=== PATIENT | male | born 1960 | race Caucasian/White ===

== ENCOUNTER 2017-04-11 16:30 | Emergency (ER) | payer OTHER ==
[~2017-04-11] VITALS: Ht 172.7 cm; Wt 75.0 kg
[~2017-04-11 16:30] MED LIST: ASPI325T28 PO; BACT800T5 PO; CLOTR1CR TOP; FISH100049 PO; FURO20TA2 PO; LACT10SO29 PO; NICO21PAT TD; SPIR25TA2 PO; TORS10TA3 PO; VITA10002 PO; VITMTA PO
[2017-04-11] MEDS ORDERED: PREG100CA (16:58)
[2017-04-11] MEDS ORDERED: FURO40TA2 (16:58)
[2017-04-11] MEDS ORDERED: DIAZ5TAB (16:58)
[2017-04-11 17:40] LABS: MEAN CORPUSCULAR HEMOGLOBIN 32.9 pg (27.0-33.0); MEAN CORPUSCULAR VOLUME 91.4 fl (80.0-96.0); RED CELL DISTRIBUTION WIDTH 13.4 % (11.5-14.5); WHITE BLOOD COUNT 9.4 K/mm3 (4.0-10.0)
[2017-04-11 17:54] LABS: METHADONE URINE NEGATIVE (NEGATIVE)
[2017-04-11 18:08] LABS: ALBUMIN 3.6 GM/DL (3.2-5.2); ALBUMIN/GLOBULIN RATIO 1.16 (1.00-1.93); ALKALINE PHOSPHATASE 81 U/L (45-117); ALT/SGPT 69 U/L (12-78); ANION GAP 11 MEQ/L (8-16); AST/SGOT 66 U/L (15-37); BILIRUBIN,DIRECT 0.1 MG/DL (0.0-0.2); BILIRUBIN,TOTAL 0.3 MG/DL (0.2-1.0); BLOOD UREA NITROGEN 10 MG/DL (7-18); CALCIUM LEVEL 8.5 MG/DL (8.5-10.1); CARBON DIOXIDE LEVEL 22 MEQ/L (21-32); CHLORIDE LEVEL 114 MEQ/L (98-107); CREATININE FOR GFR 1.01 MG/DL (0.70-1.30); GLOMERULAR FILTRATION RATE > 60.0 (>56); GLUCOSE, FASTING 90 MG/DL (70-105); POTASSIUM SERUM 4.2 MEQ/L (3.5-5.1); SODIUM LEVEL 147 MEQ/L (136-145); TOTAL PROTEIN 6.7 GM/DL (6.4-8.2)
[2017-04-12] MEDS ORDERED: NICOTINE 21MG/24HR 1 EA TRANSDERMAL TD ONE (02:00)
[2017-04-12] MEDS ORDERED: OXAZEPAM 15 MG CAP PO ONE (02:00)
[2017-04-12 08:03] VITALS: BP 141/75
--- NOTE | 2017-04-13 09:03 | ECGEPIP ---
Stationary ECG Study [facility] - ED Test Date: 2017-04-11 Pat Name: EDWARD MEJÍA Department: Room: - Gender: M Merchandise Pickup/Receiving Associate: pamela : 1960 Requested By: SHAISTA Fine Order Number: [id number] Reading MD: Mishel Perez Measurements Intervals [place] Rate: 58 P: -31 [place]: 147 QRS: -43 QRSD: 108 T: 55 QT: 421 QTc: 416 Interpretive Statements SINUS BRADYCARDIA MARKED LEFT AXIS DEVIATION DELAYED R PROGRESSION NO PRIOR FOR COMPARISON Electronically Signed On 04-13-2017 9:03:08 EDT by Mishel Perez
== END 2017-04-12 08:05 | disposition home or self-care (01) ==
LOC: EDBD 16:30 → M ED 16:30
DX: F10.129 Alcohol abuse with intoxication, unspecified (principal); R00.1 Bradycardia, unspecified; Z63.8 Other specified problems related to primary support group; K74.60 Unspecified cirrhosis of liver; R22.1 Localized swelling, mass and lump, neck; F17.200 Nicotine dependence, unspecified, uncomplicated; Z79.82 Long term (current) use of aspirin; Z79.899 Other long term (current) drug therapy; Z88.8 Allergy status to other drugs, medicaments and biological substances

== ENCOUNTER → 2017-04-11 16:39 | Emergency (ER) | payer OTHER ==
[~2017-04-11 16:39] MED LIST changes: +DIAZ5TAB; +FURO40TA2; +PREG100CA
== END | disposition still patient (30) ==
LOC: M ED 16:39
DX: F10.129 Alcohol abuse with intoxication, unspecified (principal)

== ENCOUNTER → 2021-03-05 | Outpatient (REF) | payer OTHER, MEDICAID ==
[~2021-03-05] MED LIST changes: +ASPI-527 PO; -ASPI325T28 PO; +CLOT1CRE27 TOP; -CLOTR1CR TOP; +CYAN100049 PO; -LACT10SO29 PO; +LACT20EL PO; +NICO21DI3 TD; -NICO21PAT TD; +SPIR-10 PO; -SPIR25TA2 PO; -VITA10002 PO
[2021-03-05 18:22] LABS: APPEARANCE, URINE HAZY (CLEAR); BACTERIA, URINE AUTO NEGATIVE (NEGATIVE); BILIRUBIN, URINE AUTO 1+ (NEGATIVE); BLOOD, URINE BLOOD NEGATIVE (NEGATIVE); CALCIUM OXALATE CRYSTALS SMALL; COLOR, URINE AMBER (YELLOW); GLUCOSE, URINE (UA) AUTO NEGATIVE (NEGATIVE); KETONE, URINE AUTO 1+ mg/dL (NEGATIVE); LEUKOCYTE ESTERASE, URINE AUTO NEGATIVE (NEGATIVE); MUCUS, URINE LARGE (NEGATIVE); NITRITE, URINE AUTO NEGATIVE (NEGATIVE); PROTEIN, URINE AUTO 2+ mg/dL (NEGATIVE); RBC, URINE AUTO 1 /HPF (0-3); SPECIFIC GRAVITY URINE AUTO 1.025 (1.002-1.035); SQUAMOUS EPITHELIAL CELL UR AU 0 /HPF (0-6); WBC, URINE AUTO 2 /HPF (0-3)
== END ==
LOC: M LAB REF 17:24
PROVIDERS: ATTEND Nurse Practitioner Women's Health
DX: R35.0 Frequency of micturition (principal)

== ENCOUNTER → 2021-05-20 | Outpatient (CLI) | payer OTHER ==
[~2021-05-20] MED LIST changes: +AMLO1TAB24 PO; +ARIP1TAB6 PO; +ASPI81TA26 PO; +CALC-263 PO; +DULO1CAP6 PO; +FERR325T81 PO; +FISH1000 PO; +FOLI0.4T5 PO; +GABA-282 PO; +HYDR-3363 PO; +MELA10CA2 PO; +PROP20TA72 PO; +RA N1TAB PO; +SIMV20TA22 PO; +SM P99TA PO; +SUPETAB44 PO; +TRAZ1TAB14 PO
== END ==
LOC: M LABSMTC 09:22
PROVIDERS: ATTEND Anesthesiology
DX: Z20.828 Contact with and (suspected) exposure to other viral communicable diseases (principal); Z11.52 Encounter for screening for COVID-19

== ENCOUNTER 2021-05-24 08:53 | Day surgery (SDC) | payer MEDICAID, OTHER ==
[~2021-05-24] VITALS: Ht 172.7 cm; Wt 89.5 kg
[~2021-05-24 08:53] MED LIST changes: +LIDOCAINE 2% 100MG/5ML SDV (FOR ANES.) As Ordered ONE; +NS 1,000 ML IV ONE; +propofoL 200 MG/20 ML VIAL As Ordered ONE
--- NOTE | 2021-05-24 10:49 | ROOR ---
Patient Name: Luc Garnica Procedure Date: 05/24/2021 10:03 AM Date of : 1960 Age: 61 Room: [facility] Gender: Male Note Status: Finalized Procedure: Colonoscopy Indications: High risk colon cancer surveillance: Personal history of colonic polyps Providers: Shantanu Landrum MD Referring MD: Raffi Plasencia Requesting Provider: Medicines: Monitored Anesthesia Care Complications: No immediate complications. Procedure: Pre-Anesthesia Assessment: - Prior to the procedure, a History and Physical was performed, and patient medications and allergies were reviewed. The patient is competent. The risks and benefits of the procedure and the sedation options and risks were discussed with the patient. All questions were answered and informed consent was obtained. Patient identification and proposed procedure were verified by the physician, the nurse and the anesthesiologist in the procedure room. Mental Status Examination: alert and oriented. Airway Examination: normal oropharyngeal airway and neck mobility. Respiratory Examination: clear to auscultation. CV Examination: normal. Prophylactic Antibiotics: The patient does not require prophylactic antibiotics. Prior Anticoagulants: The patient has taken no previous anticoagulant or antiplatelet agents. ASA Grade Assessment: II - A patient with mild systemic disease. After reviewing the risks and benefits, the patient was deemed in satisfactory condition to undergo the procedure. The anesthesia plan was to use monitored anesthesia care (MAC). Immediately prior to administration of medications, the patient was re-assessed for adequacy to receive sedatives. The heart rate, respiratory rate, oxygen saturations, blood pressure, adequacy of pulmonary ventilation, and response to care were monitored throughout the procedure. The physical status of the patient was re-assessed after the procedure. The Colonoscope was introduced through the anus and advanced to the cecum, identified by appendiceal orifice and ileocecal valve. The colonoscopy was performed without difficulty. The patient tolerated the procedure well. The quality of the bowel preparation was good except the sigmoid colon was fair and the transverse colon was fair. The ileocecal valve, appendiceal orifice, and rectum were photographed. Scope insertion time was 2 minutes. Scope withdrawal time was 8 minutes. The total duration of the procedure was 11 minutes. Findings: The perianal and digital rectal examinations were normal. Six sessile polyps were found in the rectum, transverse colon and ascending colon. The polyps were 8 to 15 mm in size. These polyps were removed with a hot snare. Resection and retrieval were complete. Verification of patient identification for the specimen was done by the physician and nurse using the patient's name, date and medical record number. Estimated blood loss was minimal. A large amount of semi-solid stool was found in the recto-sigmoid colon, in the sigmoid colon and in the transverse colon, interfering with visualization. Lavage of the area was performed using a large amount of sterile water, resulting in clearance with fair visualization. Non-bleeding external and internal hemorrhoids were found during retroflexion. The hemorrhoids were medium-sized. Multiple small-mouthed diverticula were found in the sigmoid colon. There was no evidence of diverticular bleeding. Impression: - Six 8 to 15 mm polyps in the rectum, in the transverse colon and in the ascending colon, removed with a hot snare. Resected and retrieved. - Stool in the recto-sigmoid colon, in the sigmoid colon and in the transverse colon. - Non-bleeding external and internal hemorrhoids. - Mild diverticulosis in the sigmoid colon. There was no evidence of diverticular bleeding. Recommendation: - Patient has a contact number available for emergencies. The signs and symptoms of potential delayed complications were discussed with the patient. Return to normal activities tomorrow. Written discharge instructions were provided to the patient. - High fiber diet. - Continue present medications. - Await pathology results. - Repeat colonoscopy in 1 year because the bowel preparation was suboptimal and for surveillance of multiple polyps. - Telephone GI clinic for pathology results in 2 weeks. - Return to GI clinic in 1 year. - Return to primary care physician. Procedure Code(s): --- Professional --- 10217, Colonoscopy, flexible; with removal of tumor(s), polyp(s), or other lesion(s) by snare technique Diagnosis Code(s): --- Professional --- Z86.010, Personal history of colonic polyps K62.1, Rectal polyp K63.5, Polyp of colon K64.8, Other hemorrhoids K57.30, Diverticulosis of large intestine without perforation or abscess without bleeding CPT copyright 2019 [employer]. All rights reserved. The codes documented in this report are preliminary and upon materials manager review may be revised to meet current compliance requirements. Shantanu Landrum MD Shantanu Landrum MD 05/24/2021 10:49:13 AM Electronically signed by Shantanu Landrum MD Number of Addenda: 0 Note Initiated On: 05/24/2021 10:03 AM Estimated Blood Loss: Estimated blood loss was minimal.
[2021-05-24 11:00] VITALS: BP 144/91
== END 2021-05-24 14:45 | disposition home or self-care (01) ==
LOC: M OPP 08:53
PROVIDERS: ATTEND Internal Medicine Gastroenterology
DX: Z12.11 Encounter for screening for malignant neoplasm of colon (principal); Z86.010 Personal history of colon polyps; D12.6 Benign neoplasm of colon, unspecified; D12.8 Benign neoplasm of rectum; K57.30 Diverticulosis of large intestine without perforation or abscess without bleeding; K64.8 Other hemorrhoids; E03.9 Hypothyroidism, unspecified; K74.60 Unspecified cirrhosis of liver; J44.9 Chronic obstructive pulmonary disease, unspecified; Z79.82 Long term (current) use of aspirin; Z79.899 Other long term (current) drug therapy; Z88.1 Allergy status to other antibiotic agents; F17.210 Nicotine dependence, cigarettes, uncomplicated

== ENCOUNTER 2021-10-19 00:26 | Inpatient (IN) | payer MEDICARE, OTHER ==
[~2021-10-19] VITALS: Ht 172.7 cm; Wt 82.1 kg
[~2021-10-19 00:26] MED LIST changes: +GNP99TAB3 PO; -LIDOCAINE 2% 100MG/5ML SDV (FOR ANES.) As Ordered ONE; -NS 1,000 ML IV ONE; -SM P99TA PO; -propofoL 200 MG/20 ML VIAL As Ordered ONE
[2021-10-19] MEDS ORDERED: LORazepam 2 MG/ML VIAL IV STA ×2 (00:57→04:37)
[2021-10-19 01:26] LABS: BASO # 0.1 10^3/uL (0.0-0.2); BASO % 0.7 % (0.0-1.0); EOS % 0.1 % (0.0-3.0); HEMATOCRIT 41.6 % (42.0-52.0); HEMOGLOBIN 14.8 g/dl (13.5-17.5); LYMPH # 1.9 10^3/uL (1.5-5.0); LYMPH % 19.6 % (24.0-44.0); MEAN CORPUSCULAR HEMOGLOBIN 36.1 pg (27.0-33.0); MEAN CORPUSCULAR HGB CONC 35.6 g/dl (32.0-36.5); MEAN CORPUSCULAR VOLUME 101.5 fl (80.0-96.0); MONO # 0.9 10^3/uL (0.0-0.8); MONO % 8.7 % (2.0-8.0); NEUTROPHILS # 6.9 10^3/uL (1.5-8.5); NEUTROPHILS % 70.7 % (36.0-66.0); PLATELET COUNT, AUTOMATED 126 10^3/uL (150-450); WHITE BLOOD COUNT 9.7 10^3/uL (4.0-10.0)
[2021-10-19 02:21] LABS: ACETAMINOPHEN LEVEL < 2.0 UG/ML (10.0-30.0); ALBUMIN 2.5 GM/DL (3.2-5.2); ALT/SGPT 128 U/L (12-78); BILIRUBIN,TOTAL 2.1 MG/DL (0.2-1.0); BLOOD UREA NITROGEN 7 MG/DL (7-18); CALCIUM LEVEL 8.3 MG/DL (8.8-10.2); CARBON DIOXIDE LEVEL 27 MEQ/L (21-32); CHLORIDE LEVEL 107 MEQ/L (98-107); CREATININE FOR GFR 0.92 MG/DL (0.70-1.30); GLOMERULAR FILTRATION RATE > 60.0 (>49); GLUCOSE, FASTING 127 MG/DL (70-100); POTASSIUM SERUM 2.8 MEQ/L (3.5-5.1); SALICYLATE LEVEL < 1.7 MG/DL (5.0-30.0); SODIUM LEVEL 146 MEQ/L (136-145); TOTAL PROTEIN 5.7 GM/DL (6.4-8.2)
[2021-10-19] MEDS ORDERED: MULTIVITAMIN -ADULT INJECTION 10 ML, THIAMINE INJection 100 MG, FOLIC ACID 1 MG in NS 1... IV ONE (02:30)
[2021-10-19] MEDS ORDERED: NS 1,000 ML IV ONE (02:30)
[2021-10-19] MEDS: POTASSIUM CHLORIDE 10% LIQ 20 MEQ/15 ML UDC PO SCH ×2 (02:45→04:46)
[2021-10-19] MEDS ORDERED: OXAZEPAM 15MG CAP PO ONE (03:30)
[2021-10-19 05:56] LABS: ALBUMIN 2.4 GM/DL (3.2-5.2); ALT/SGPT 128 U/L (12-78); BILIRUBIN,TOTAL 2.3 MG/DL (0.2-1.0); BLOOD UREA NITROGEN 8 MG/DL (7-18); CALCIUM LEVEL 7.8 MG/DL (8.8-10.2); CARBON DIOXIDE LEVEL 27 MEQ/L (21-32); CHLORIDE LEVEL 111 MEQ/L (98-107); CREATININE FOR GFR 0.92 MG/DL (0.70-1.30); GLOMERULAR FILTRATION RATE > 60.0 (>49); GLUCOSE, FASTING 153 MG/DL (70-100); POTASSIUM SERUM 3.5 MEQ/L (3.5-5.1); SODIUM LEVEL 148 MEQ/L (136-145); TOTAL PROTEIN 5.5 GM/DL (6.4-8.2)
[2021-10-19 07:30] LABS: RSV AMPLIFICATION NEGATIVE (NEGATIVE)
[2021-10-19] MEDS ORDERED: LORazepam 2 MG TAB PO PRN (08:10)
[2021-10-19 10:20] VITALS: BP 142/95
[2021-10-19] MEDS: THIAMINE 100 MG TAB PO SCH ×2 (11:16→21:49)
[2021-10-19 12:00] VITALS: BP 136/79
[2021-10-19 12:38] LABS: INR 1.18; PROTHROMBIN TIME 15.4 SECONDS (12.7-14.5)
[2021-10-19 12:39] LABS: PARTIAL THROMBOPLASTIN TIME 30.3 SECONDS (25.9-37.0)
[2021-10-19 12:52] LABS: MAGNESIUM LEVEL 1.4 MG/DL (1.8-2.4)
[2021-10-19] MEDS ORDERED: LORazepam 2 MG/ML VIAL IV PRN ×2 (13:05→15:40)
[2021-10-19 13:07] LABS: BLOOD UREA NITROGEN 8 MG/DL (7-18); CALCIUM LEVEL 7.4 MG/DL (8.8-10.2); CARBON DIOXIDE LEVEL 25 MEQ/L (21-32); CHLORIDE LEVEL 110 MEQ/L (98-107); CREATININE FOR GFR 0.92 MG/DL (0.70-1.30); GLOMERULAR FILTRATION RATE > 60.0 (>49); GLUCOSE, FASTING 191 MG/DL (70-100); POTASSIUM SERUM 2.7 MEQ/L (3.5-5.1); SODIUM LEVEL 144 MEQ/L (136-145)
[2021-10-19 13:31] LABS: HEPATITIS B SURFACE ANTIGEN NEGATIVE (NEGATIVE)
[2021-10-19] MEDS ORDERED: POTASSIUM CHLORIDE 10MEQ SR TABLET PO ONE ×2 (13:45→23:00)
[2021-10-19 14:00] LABS: HEPATITIS B CORE ANTIBODY IGM NEGATIVE (NEGATIVE)
[2021-10-19] MEDS: OXAZEPAM 15MG CAP PO SCH ×3 (14:31→23:32)
[2021-10-19] MEDS: MAG SULF 1GM/100ML (MAG RUN) 1 GM in IV 1 EA IV SCH ×4 (14:32→19:51)
[2021-10-19] MEDS: NICOTINE 21MG/24HR 1 EA TRANSDERMAL TD SCH (15:57)
[2021-10-19 16:00] VITALS: BP 144/86
[2021-10-19] MEDS: LORazepam 2 MG/ML VIAL IV PRN ×4 (18:13→23:31)
[2021-10-19 18:23] LABS: BLOOD UREA NITROGEN 9 MG/DL (7-18); CALCIUM LEVEL 7.7 MG/DL (8.8-10.2); CARBON DIOXIDE LEVEL 24 MEQ/L (21-32); CHLORIDE LEVEL 109 MEQ/L (98-107); CREATININE FOR GFR 0.85 MG/DL (0.70-1.30); GLOMERULAR FILTRATION RATE > 60.0 (>49); GLUCOSE, FASTING 167 MG/DL (70-100); POTASSIUM SERUM 3.2 MEQ/L (3.5-5.1); SODIUM LEVEL 142 MEQ/L (136-145)
[2021-10-19 20:02] VITALS: BP 133/83
[2021-10-19] MEDS ORDERED: THIAMINE 100 MG TAB PO SCH (21:00)
[2021-10-20] VITALS (8 sets, daily range): BP systolic 130–170; BP diastolic 62–119; O2SAT 96–98
[2021-10-20] MEDS: LORazepam 2 MG/ML VIAL IV PRN ×7 (02:18→21:06)
[2021-10-20] MEDS: OXAZEPAM 15MG CAP PO SCH ×3 (06:15→17:09)
[2021-10-20 06:20] LABS: HEMATOCRIT 35.2 % (42.0-52.0); MEAN CORPUSCULAR HEMOGLOBIN 35.8 pg (27.0-33.0); MEAN CORPUSCULAR HGB CONC 34.9 g/dl (32.0-36.5); MEAN CORPUSCULAR VOLUME 102.3 fl (80.0-96.0); RED BLOOD COUNT 3.44 10^6/uL (4.30-6.10); WHITE BLOOD COUNT 7.1 10^3/uL (4.0-10.0)
[2021-10-20 06:50] LABS: ALBUMIN 2.2 GM/DL (3.2-5.2); ALT/SGPT 106 U/L (12-78); BILIRUBIN,DIRECT 2.6 MG/DL (0.0-0.2); BILIRUBIN,TOTAL 3.9 MG/DL (0.2-1.0); TOTAL PROTEIN 4.9 GM/DL (6.4-8.2)
[2021-10-20 06:52] LABS: HEMOGLOBIN 12.3 g/dl (13.5-17.5); PLATELET COUNT, AUTOMATED 68 10^3/uL (150-450)
[2021-10-20] MEDS: MULTIVITAMINS/MINERALS THERAP 1 TAB PO SCH (07:37)
[2021-10-20] MEDS: THIAMINE 100 MG TAB PO SCH ×2 (07:37→21:06)
[2021-10-20] MEDS: NICOTINE 21MG/24HR 1 EA TRANSDERMAL TD SCH (07:37)
[2021-10-20] MEDS: FOLIC ACID 1 MG TAB PO SCH (07:37)
[2021-10-20 07:46] LABS: BLOOD UREA NITROGEN 10 MG/DL (7-18); CALCIUM LEVEL 7.4 MG/DL (8.8-10.2); CARBON DIOXIDE LEVEL 25 MEQ/L (21-32); CHLORIDE LEVEL 109 MEQ/L (98-107); CREATININE FOR GFR 0.81 MG/DL (0.70-1.30); GLOMERULAR FILTRATION RATE > 60.0 (>49); GLUCOSE, FASTING 101 MG/DL (70-100); MAGNESIUM LEVEL 2.1 MG/DL (1.8-2.4); POTASSIUM SERUM 3.1 MEQ/L (3.5-5.1); SODIUM LEVEL 141 MEQ/L (136-145)
[2021-10-20] MEDS ORDERED: POTASSIUM CHLORIDE 10MEQ SR TABLET PO ONE (15:40)
[2021-10-21] VITALS (7 sets, daily range): BP systolic 122–146; BP diastolic 66–78; O2SAT 95–97
[2021-10-21] MEDS: OXAZEPAM 15MG CAP PO SCH ×4 (00:16→18:31)
[2021-10-21] MEDS: LORazepam 2 MG/ML VIAL IV PRN ×2 (04:52→20:41)
[2021-10-21 06:07] LABS: HEMATOCRIT 33.8 % (42.0-52.0); MEAN CORPUSCULAR HEMOGLOBIN 36.4 pg (27.0-33.0); MEAN CORPUSCULAR HGB CONC 35.5 g/dl (32.0-36.5); MEAN CORPUSCULAR VOLUME 102.4 fl (80.0-96.0); WHITE BLOOD COUNT 5.9 10^3/uL (4.0-10.0)
[2021-10-21 06:09] LABS: PLATELET COUNT, AUTOMATED 62 10^3/uL (150-450)
[2021-10-21 06:33] LABS: ALBUMIN 2.1 GM/DL (3.2-5.2); ALT/SGPT 137 U/L (12-78); BILIRUBIN,TOTAL 4.2 MG/DL (0.2-1.0); BLOOD UREA NITROGEN 12 MG/DL (7-18); CALCIUM LEVEL 7.8 MG/DL (8.8-10.2); CARBON DIOXIDE LEVEL 28 MEQ/L (21-32); CHLORIDE LEVEL 110 MEQ/L (98-107); CREATININE FOR GFR 0.54 MG/DL (0.70-1.30); GLOMERULAR FILTRATION RATE > 60.0 (>49); GLUCOSE, FASTING 89 MG/DL (70-100); POTASSIUM SERUM 3.1 MEQ/L (3.5-5.1); SODIUM LEVEL 143 MEQ/L (136-145); TOTAL PROTEIN 4.8 GM/DL (6.4-8.2)
[2021-10-21] MEDS ORDERED: POTASSIUM CHLORIDE 10MEQ SR TABLET PO ONE (08:00)
[2021-10-21] MEDS: NICOTINE 21MG/24HR 1 EA TRANSDERMAL TD SCH (08:46)
[2021-10-21] MEDS: THIAMINE 100 MG TAB PO SCH ×2 (08:47→20:42)
[2021-10-21] MEDS: FOLIC ACID 1 MG TAB PO SCH (08:47)
[2021-10-21] MEDS: MULTIVITAMINS/MINERALS THERAP 1 TAB PO SCH (08:47)
[2021-10-21] MEDS: NS 1,000 ML IV SCH ×2 (08:49→18:30)
[2021-10-21] MEDS ORDERED: MED NOTE (12:39)
[2021-10-21] MEDS ORDERED: HOME MED LIST COMPLETE! XX SCH (12:40)
[2021-10-21] MEDS ORDERED: PROPRANOLOL 20 MG TAB PO PRN (16:25)
[2021-10-21] MEDS: DOXYCYCLINE HYCLATE 100 MG in D5W MINI-BAG PLUS 100 ML IV SCH (18:31)
[2021-10-21 18:47] LABS: INR 1.3; PROTHROMBIN TIME 16.6 SECONDS (12.7-14.5)
[2021-10-21] MEDS ORDERED: POLYVINYL ALCOHOL OPHTH SOLN 15 ML(LIQUITEARS) OD PRN (20:55)
[2021-10-22] VITALS: BP 157/92
[2021-10-22] MEDS: OXAZEPAM 15MG CAP PO SCH ×5 (01:20→17:34)
[2021-10-22 04:00] VITALS: BP 138/83
[2021-10-22] MEDS: LORazepam 2 MG/ML VIAL IV PRN (05:06)
[2021-10-22] MEDS: DOXYCYCLINE HYCLATE 100 MG in D5W MINI-BAG PLUS 100 ML IV SCH ×2 (05:49→17:33)
[2021-10-22] MEDS: NS 1,000 ML IV SCH ×2 (05:49→14:42)
[2021-10-22 07:17] LABS: HEMATOCRIT 36.3 % (42.0-52.0); HEMOGLOBIN 12.5 g/dl (13.5-17.5); MEAN CORPUSCULAR HEMOGLOBIN 36.1 pg (27.0-33.0); MEAN CORPUSCULAR HGB CONC 34.4 g/dl (32.0-36.5); MEAN CORPUSCULAR VOLUME 104.9 fl (80.0-96.0); RED BLOOD COUNT 3.46 10^6/uL (4.30-6.10); WHITE BLOOD COUNT 4.9 10^3/uL (4.0-10.0)
[2021-10-22 07:21] LABS: PLATELET COUNT, AUTOMATED 65 10^3/uL (150-450)
[2021-10-22 07:24] LABS: INR 1.25; PROTHROMBIN TIME 16.1 SECONDS (12.7-14.5)
[2021-10-22 07:37] LABS: ALT/SGPT 145 U/L (12-78); BILIRUBIN,TOTAL 3.9 MG/DL (0.2-1.0); BLOOD UREA NITROGEN 7 MG/DL (7-18); CALCIUM LEVEL 7.6 MG/DL (8.8-10.2); CARBON DIOXIDE LEVEL 26 MEQ/L (21-32); CHLORIDE LEVEL 110 MEQ/L (98-107); CREATININE FOR GFR 0.46 MG/DL (0.70-1.30); GLOMERULAR FILTRATION RATE > 60.0 (>49); GLUCOSE, FASTING 84 MG/DL (70-100); POTASSIUM SERUM 2.9 MEQ/L (3.5-5.1); SODIUM LEVEL 141 MEQ/L (136-145); TOTAL PROTEIN 5.1 GM/DL (6.4-8.2)
[2021-10-22] MEDS ORDERED: POTASSIUM CHLORIDE 10MEQ SR TABLET PO ONE (07:45)
[2021-10-22 08:00] VITALS: BP 133/98
[2021-10-22] MEDS: NICOTINE 21MG/24HR 1 EA TRANSDERMAL TD SCH (08:12)
[2021-10-22] MEDS: DULoxetine 30MG CAPSULE (CYMBALTA) PO SCH (08:13)
[2021-10-22] MEDS: FOLIC ACID 1 MG TAB PO SCH (08:15)
[2021-10-22] MEDS: MULTIVITAMINS/MINERALS THERAP 1 TAB PO SCH (08:15)
[2021-10-22 12:00] VITALS: BP 129/77
[2021-10-22 16:00] VITALS: BP 117/74
[2021-10-22 19:48] VITALS: BP 173/93
[2021-10-22] MEDS: OFLOXACIN 0.3 % (OCUFLOX) OPTH SOL 5ML OU SCH (20:58)
[2021-10-23] VITALS (7 sets, daily range): BP systolic 123–164; BP diastolic 81–92
[2021-10-23] MEDS: NS 1,000 ML IV SCH ×2 (01:28→11:30)
[2021-10-23] MEDS: OXAZEPAM 15MG CAP PO SCH ×5 (01:32→23:16)
[2021-10-23] MEDS: DOXYCYCLINE HYCLATE 100 MG in D5W MINI-BAG PLUS 100 ML IV SCH (05:10)
[2021-10-23 07:01] LABS: HEMATOCRIT 34.5 % (42.0-52.0); HEMOGLOBIN 12.1 g/dl (13.5-17.5); MEAN CORPUSCULAR HEMOGLOBIN 36.2 pg (27.0-33.0); MEAN CORPUSCULAR HGB CONC 35.1 g/dl (32.0-36.5); MEAN CORPUSCULAR VOLUME 103.3 fl (80.0-96.0); RED BLOOD COUNT 3.34 10^6/uL (4.30-6.10); WHITE BLOOD COUNT 5.3 10^3/uL (4.0-10.0)
[2021-10-23 07:02] LABS: PLATELET COUNT, AUTOMATED 82 10^3/uL (150-450)
[2021-10-23] MEDS ORDERED: oxyCODONE 5MG TAB PO PRN (07:15)
[2021-10-23 07:20] LABS: ALBUMIN 1.9 GM/DL (3.2-5.2); ALT/SGPT 132 U/L (12-78); BILIRUBIN,TOTAL 2.9 MG/DL (0.2-1.0); BLOOD UREA NITROGEN 8 MG/DL (7-18); CALCIUM LEVEL 7.4 MG/DL (8.8-10.2); CARBON DIOXIDE LEVEL 24 MEQ/L (21-32); CHLORIDE LEVEL 112 MEQ/L (98-107); CREATININE FOR GFR 0.47 MG/DL (0.70-1.30); GLOMERULAR FILTRATION RATE > 60.0 (>49); GLUCOSE, FASTING 91 MG/DL (70-100); POTASSIUM SERUM 2.8 MEQ/L (3.5-5.1); SODIUM LEVEL 142 MEQ/L (136-145); TOTAL PROTEIN 5.1 GM/DL (6.4-8.2)
[2021-10-23] MEDS ORDERED: POTASSIUM CHLORIDE 10MEQ SR TABLET PO ONE ×2 (07:30→10:30)
[2021-10-23] MEDS: DULoxetine 30MG CAPSULE (CYMBALTA) PO SCH (08:00)
[2021-10-23] MEDS: FOLIC ACID 1 MG TAB PO SCH (08:00)
[2021-10-23] MEDS: MULTIVITAMINS/MINERALS THERAP 1 TAB PO SCH (08:00)
[2021-10-23] MEDS: NICOTINE 21MG/24HR 1 EA TRANSDERMAL TD SCH (08:01)
[2021-10-23] MEDS: OFLOXACIN 0.3 % (OCUFLOX) OPTH SOL 5ML OU SCH ×4 (08:02→20:48)
[2021-10-23 17:25] LABS: BLOOD UREA NITROGEN 8 MG/DL (7-18); CALCIUM LEVEL 7.2 MG/DL (8.8-10.2); CARBON DIOXIDE LEVEL 21 MEQ/L (21-32); CHLORIDE LEVEL 116 MEQ/L (98-107); CREATININE FOR GFR 0.49 MG/DL (0.70-1.30); GLOMERULAR FILTRATION RATE > 60.0 (>49); GLUCOSE, FASTING 110 MG/DL (70-100); POTASSIUM SERUM 3.4 MEQ/L (3.5-5.1); SODIUM LEVEL 144 MEQ/L (136-145)
[2021-10-23] MEDS: DOXYCYCLINE HYCLATE 100MG TABLET PO SCH (20:48)
[2021-10-24 04:00] VITALS: BP 134/94
[2021-10-24] MEDS: OXAZEPAM 15MG CAP PO SCH ×2 (05:17→17:22)
[2021-10-24 06:07] LABS: HEMATOCRIT 35.4 % (42.0-52.0); HEMOGLOBIN 12.2 g/dl (13.5-17.5); MEAN CORPUSCULAR HEMOGLOBIN 36.1 pg (27.0-33.0); MEAN CORPUSCULAR HGB CONC 34.5 g/dl (32.0-36.5); MEAN CORPUSCULAR VOLUME 104.7 fl (80.0-96.0); PLATELET COUNT, AUTOMATED 104 10^3/uL (150-450); RED BLOOD COUNT 3.38 10^6/uL (4.30-6.10); WHITE BLOOD COUNT 5.3 10^3/uL (4.0-10.0)
[2021-10-24 06:38] LABS: ALT/SGPT 122 U/L (12-78); BILIRUBIN,TOTAL 2.4 MG/DL (0.2-1.0); BLOOD UREA NITROGEN 8 MG/DL (7-18); CALCIUM LEVEL 7.5 MG/DL (8.8-10.2); CARBON DIOXIDE LEVEL 23 MEQ/L (21-32); CHLORIDE LEVEL 115 MEQ/L (98-107); CREATININE FOR GFR 0.49 MG/DL (0.70-1.30); GLOMERULAR FILTRATION RATE > 60.0 (>49); GLUCOSE, FASTING 99 MG/DL (70-100); POTASSIUM SERUM 3.3 MEQ/L (3.5-5.1); SODIUM LEVEL 143 MEQ/L (136-145); TOTAL PROTEIN 4.9 GM/DL (6.4-8.2)
[2021-10-24] MEDS ORDERED: POTASSIUM CHLORIDE 10MEQ SR TABLET PO ONE (07:15)
[2021-10-24 08:00] VITALS: BP 159/94
[2021-10-24] MEDS: NICOTINE 21MG/24HR 1 EA TRANSDERMAL TD SCH (09:36)
[2021-10-24] MEDS: DULoxetine 30MG CAPSULE (CYMBALTA) PO SCH (09:36)
[2021-10-24] MEDS: DOXYCYCLINE HYCLATE 100MG TABLET PO SCH ×2 (09:37→20:10)
[2021-10-24] MEDS: OFLOXACIN 0.3 % (OCUFLOX) OPTH SOL 5ML OU SCH ×4 (09:37→20:11)
[2021-10-24] MEDS: MULTIVITAMINS/MINERALS THERAP 1 TAB PO SCH (09:37)
[2021-10-24] MEDS: FOLIC ACID 1 MG TAB PO SCH (09:37)
[2021-10-24 12:00] VITALS: BP 158/98
[2021-10-24 16:00] VITALS: BP 166/94
[2021-10-24] MEDS: lisinopriL 5 MG TAB PO SCH (17:23)
[2021-10-24 18:20] VITALS: BP 148/88
[2021-10-24 20:00] VITALS: BP 143/90
[2021-10-25] VITALS: BP 153/54
[2021-10-25 04:00] VITALS: BP 161/99
[2021-10-25] MEDS: OXAZEPAM 15MG CAP PO SCH ×2 (05:11→17:23)
[2021-10-25 08:00] VITALS: BP 141/91
[2021-10-25] MEDS: NICOTINE 21MG/24HR 1 EA TRANSDERMAL TD SCH (09:27)
[2021-10-25] MEDS: OFLOXACIN 0.3 % (OCUFLOX) OPTH SOL 5ML OU SCH ×4 (09:27→20:31)
[2021-10-25] MEDS: DULoxetine 30MG CAPSULE (CYMBALTA) PO SCH (09:27)
[2021-10-25] MEDS: DOXYCYCLINE HYCLATE 100MG TABLET PO SCH ×2 (09:28→20:31)
[2021-10-25] MEDS: MULTIVITAMINS/MINERALS THERAP 1 TAB PO SCH (09:28)
[2021-10-25] MEDS: FOLIC ACID 1 MG TAB PO SCH (09:28)
[2021-10-25] MEDS: lisinopriL 5 MG TAB PO SCH (09:28)
[2021-10-25] MEDS: amLODIPine 5 MG TAB PO SCH (09:28)
[2021-10-25 16:00] VITALS: BP 118/86
[2021-10-25] MEDS ORDERED: POTASSIUM CHLORIDE 10MEQ SR TABLET PO ONE (17:50)
[2021-10-25 20:35] VITALS: BP 146/93
[2021-10-26 05:15] VITALS: BP 161/89
[2021-10-26 06:18] LABS: HEMATOCRIT 36.3 % (42.0-52.0); HEMOGLOBIN 12.6 g/dl (13.5-17.5); MEAN CORPUSCULAR HEMOGLOBIN 35.8 pg (27.0-33.0); MEAN CORPUSCULAR HGB CONC 34.7 g/dl (32.0-36.5); MEAN CORPUSCULAR VOLUME 103.1 fl (80.0-96.0); PLATELET COUNT, AUTOMATED 168 10^3/uL (150-450); RED BLOOD COUNT 3.52 10^6/uL (4.30-6.10); WHITE BLOOD COUNT 4.6 10^3/uL (4.0-10.0)
[2021-10-26] MEDS: OXAZEPAM 15MG CAP PO SCH ×2 (06:29→17:50)
[2021-10-26 06:42] LABS: ALBUMIN 2.1 GM/DL (3.2-5.2); ALT/SGPT 130 U/L (12-78); BILIRUBIN,TOTAL 2.1 MG/DL (0.2-1.0); BLOOD UREA NITROGEN 4 MG/DL (7-18); CARBON DIOXIDE LEVEL 25 MEQ/L (21-32); CHLORIDE LEVEL 112 MEQ/L (98-107); CREATININE FOR GFR 0.51 MG/DL (0.70-1.30); GLOMERULAR FILTRATION RATE > 60.0 (>49); GLUCOSE, FASTING 110 MG/DL (70-100); MAGNESIUM LEVEL 1.8 MG/DL (1.8-2.4); POTASSIUM SERUM 3.6 MEQ/L (3.5-5.1); SODIUM LEVEL 141 MEQ/L (136-145); TOTAL PROTEIN 4.9 GM/DL (6.4-8.2)
[2021-10-26 07:55] VITALS: BP 132/88
[2021-10-26] MEDS: OFLOXACIN 0.3 % (OCUFLOX) OPTH SOL 5ML OU SCH ×4 (09:35→20:30)
[2021-10-26] MEDS: DOXYCYCLINE HYCLATE 100MG TABLET PO SCH ×2 (09:36→20:30)
[2021-10-26] MEDS: amLODIPine 5 MG TAB PO SCH (09:36)
[2021-10-26] MEDS: NICOTINE 21MG/24HR 1 EA TRANSDERMAL TD SCH (09:36)
[2021-10-26] MEDS: lisinopriL 5 MG TAB PO SCH (09:37)
[2021-10-26] MEDS: FOLIC ACID 1 MG TAB PO SCH (09:37)
[2021-10-26] MEDS: MULTIVITAMINS/MINERALS THERAP 1 TAB PO SCH (09:37)
[2021-10-26] MEDS: DULoxetine 30MG CAPSULE (CYMBALTA) PO SCH (09:37)
[2021-10-26 16:02] VITALS: BP 150/95
[2021-10-26 20:40] VITALS: BP 141/87
[2021-10-26 22:24] VITALS: BP 137/86
[2021-10-27 06:00] VITALS: BP 166/87
[2021-10-27 06:16] LABS: HEMATOCRIT 36.2 % (42.0-52.0); HEMOGLOBIN 12.4 g/dl (13.5-17.5); MEAN CORPUSCULAR HEMOGLOBIN 35.7 pg (27.0-33.0); MEAN CORPUSCULAR HGB CONC 34.3 g/dl (32.0-36.5); MEAN CORPUSCULAR VOLUME 104.3 fl (80.0-96.0); PLATELET COUNT, AUTOMATED 204 10^3/uL (150-450); RED BLOOD COUNT 3.47 10^6/uL (4.30-6.10)
[2021-10-27] MEDS: OXAZEPAM 15MG CAP PO SCH (06:27)
[2021-10-27 06:39] LABS: ALBUMIN 2.1 GM/DL (3.2-5.2); ALT/SGPT 118 U/L (12-78); BLOOD UREA NITROGEN 5 MG/DL (7-18); CALCIUM LEVEL 8.3 MG/DL (8.8-10.2); CARBON DIOXIDE LEVEL 25 MEQ/L (21-32); CHLORIDE LEVEL 110 MEQ/L (98-107); CREATININE FOR GFR 0.58 MG/DL (0.70-1.30); GLOMERULAR FILTRATION RATE > 60.0 (>49); GLUCOSE, FASTING 94 MG/DL (70-100); POTASSIUM SERUM 3.5 MEQ/L (3.5-5.1); SODIUM LEVEL 141 MEQ/L (136-145)
[2021-10-27] MEDS: FOLIC ACID 1 MG TAB PO SCH (09:45)
[2021-10-27] MEDS: DOXYCYCLINE HYCLATE 100MG TABLET PO SCH (09:45)
[2021-10-27] MEDS: MULTIVITAMINS/MINERALS THERAP 1 TAB PO SCH (09:45)
[2021-10-27] MEDS: DULoxetine 30MG CAPSULE (CYMBALTA) PO SCH (09:45)
[2021-10-27] MEDS: NICOTINE 21MG/24HR 1 EA TRANSDERMAL TD SCH (09:45)
[2021-10-27 09:46] VITALS: BP 166/87
[2021-10-27] MEDS: OFLOXACIN 0.3 % (OCUFLOX) OPTH SOL 5ML OU SCH (09:46)
[2021-10-27] MEDS ORDERED: hydrOXYzine 10 MG TAB PO PRN (10:35)
[2021-10-27] MEDS ORDERED: NICO21PAT TD (10:36)
[2021-10-27] MEDS ORDERED: FOLI1TAB11 PO (10:36)
[2021-10-27] MEDS ORDERED: OXYC-517 PO (10:36)
[2021-10-27] MEDS ORDERED: LISI10TA22 PO (10:36)
[2021-10-27] MEDS ORDERED: POLYOPD OU (10:36)
[2021-10-27] MEDS ORDERED: OXAZ15CA4 PO (10:36)
[2021-10-27] MEDS ORDERED: HYDR-643 PO (10:36)
[2021-10-27] MEDS ORDERED: VITMTA PO (10:36)
[2021-10-27] MEDS ORDERED: DOXY100T PO (10:36)
[2021-10-27] MEDS ORDERED: hydrOXYzine 10 MG TAB PO ONE (10:45)
[2021-10-27] MEDS ORDERED: POLYVINYL ALCOHOL OPHTH SOLN 15 ML(LIQUITEARS) OU SCH (13:00)
[2021-10-27] MEDS ORDERED: LACRILUBE (AKWA TEARS) OPHTH OINT 3.5 GM OU SCH (16:00)
== END 2021-10-27 12:30 | disposition home health service (06) | DRG 896 ==
LOC: M ED 00:26 → M ED INP 08:07 → ENRESERV 08:16 → M PCU 10:14 → M MS4PR 10-26 22:20
PROVIDERS: ADMIT Internal Medicine; ATTEND General Practice
DX: F10.229 Alcohol dependence with intoxication, unspecified (principal); G92.9 Unspecified toxic encephalopathy; I82.611 Acute embolism and thrombosis of superficial veins of right upper extremity; L03.113 Cellulitis of right upper limb; F12.90 Cannabis use, unspecified, uncomplicated; K70.10 Alcoholic hepatitis without ascites; R29.6 Repeated falls; E87.6 Hypokalemia; G31.2 Degeneration of nervous system due to alcohol; Z79.899 Other long term (current) drug therapy; Z79.82 Long term (current) use of aspirin; Z88.8 Allergy status to other drugs, medicaments and biological substances; F41.9 Anxiety disorder, unspecified; F32.A Depression, unspecified; F17.200 Nicotine dependence, unspecified, uncomplicated

== ENCOUNTER 2022-01-04 05:34 | Inpatient (IN) | payer MEDICARE ==
[~2022-01-04] VITALS: Ht 172.7 cm; Wt 101.7 kg
[2022-01-04] MEDS: OCTREOTIDE ACETATE 1,200 MCG in NS 238.8 ML IV SCH (01:26)
[~2022-01-04 05:34] MED LIST changes: +DOXY100T PO; +FOLI1TAB11 PO; +HYDR-643 PO; +LISI10TA22 PO; +MED NOTE; +NICO21PAT TD; +OXAZ15CA4 PO; +OXYC-517 PO; +POLYOPD OU
[2022-01-04] MEDS ORDERED: NS 1,000 ML IV ONE (06:05)
[2022-01-04 06:32] LABS: BASO # 0.1 10^3/uL (0.0-0.2); BASO % 0.5 % (0.0-1.0); EOS # 0.1 10^3/uL (0.0-0.5); EOS % 0.3 % (0.0-3.0); HEMATOCRIT 32.9 % (42.0-52.0); HEMOGLOBIN 11.9 g/dl (13.5-17.5); LYMPH # 2.1 10^3/uL (1.5-5.0); LYMPH % 11.1 % (24.0-44.0); MEAN CORPUSCULAR HGB CONC 36.2 g/dl (32.0-36.5); MEAN CORPUSCULAR VOLUME 105.1 fl (80.0-96.0); MONO # 1.1 10^3/uL (0.0-0.8); MONO % 5.8 % (2.0-8.0); NEUTROPHILS # 15.1 10^3/uL (1.5-8.5); NEUTROPHILS % 80.9 % (36.0-66.0); PLATELET COUNT, AUTOMATED 335 10^3/uL (150-450); RED BLOOD COUNT 3.13 10^6/uL (4.30-6.10); WHITE BLOOD COUNT 18.6 10^3/uL (4.0-10.0)
[2022-01-04] MEDS ORDERED: cefTRIAXone SOD 2 GM in D5W MINI-BAG PLUS 50 ML IV ONE (06:45)
[2022-01-04] MEDS ORDERED: NS 1,420 ML in IV 1 EA IV ONE (06:45)
[2022-01-04 06:52] LABS: ALBUMIN 1.4 GM/DL (3.2-5.2); BILIRUBIN,DIRECT 7.2 MG/DL (0.0-0.2); BILIRUBIN,TOTAL 8.7 MG/DL (0.2-1.0); CALCIUM LEVEL 7.4 MG/DL (8.8-10.2); CREATININE FOR GFR 1.69 MG/DL (0.70-1.30); FREE T4 1.41 NG/DL (0.76-1.46); GLOMERULAR FILTRATION RATE 44.1 (>49); MAGNESIUM LEVEL 2.2 MG/DL (1.8-2.4); PHOSPHORUS LEVEL 1.8 MG/DL (2.5-4.9); POTASSIUM SERUM 2.1 MEQ/L (3.5-5.1); THYROID STIMULATING HORMONE 2.24 uIU/ML (0.358-3.740); TOTAL PROTEIN 4.1 GM/DL (6.4-8.2)
[2022-01-04] MEDS ORDERED: POTASSIUM CHLORIDE 10MEQ SR TABLET PO ONE ×2 (06:55→08:50)
[2022-01-04] MEDS ORDERED: KCL 10MEQ/100ML SWI (KRUN) 10 MEQ in IV 1 EA IV ONE (06:55)
[2022-01-04] MEDS ORDERED: ISOVUE-370 76% 100ML VIAL As Ordered ONE (07:09)
[2022-01-04] MEDS ORDERED: LORazepam 2 MG TAB PO PRN ×3 (08:05→08:55)
[2022-01-04] MEDS ORDERED: ACETAMINOPHEN TAB 650MG DOSE (2X325MG) PO PRN (08:50)
[2022-01-04] MEDS ORDERED: MOM 30ML SUSPENSION UDC PO PRN (08:50)
[2022-01-04] MEDS ORDERED: NICOTINE 21MG/24HR 1 EA TRANSDERMAL TD ONE ×2 (08:55)
[2022-01-04] MEDS ORDERED: DOXYCYCLINE HYCLATE 100 MG in D5W MINI-BAG PLUS 100 ML IV SCH (08:55)
[2022-01-04] MEDS ORDERED: cefTRIAXone SOD 1 GM in D5W MINI-BAG PLUS 50 ML IV SCH (08:55)
[2022-01-04] MEDS ORDERED: FOLIC ACID 1 MG TAB PO SCH ×2 (09:00)
[2022-01-04] MEDS ORDERED: MULTIVITAMINS/MINERALS THERAP 1 TAB PO SCH ×2 (09:00)
[2022-01-04] MEDS ORDERED: THIAMINE 100 MG TAB PO SCH ×2 (09:00)
[2022-01-04] MEDS: FOLIC ACID 1 MG TAB PO SCH (09:06)
[2022-01-04] MEDS: THIAMINE 100 MG TAB PO SCH ×2 (09:07→20:50)
[2022-01-04] MEDS: MULTIVITAMINS/MINERALS THERAP 1 TAB PO SCH (09:14)
[2022-01-04] MEDS: DOXYCYCLINE HYCLATE 100 MG in D5W MINI-BAG PLUS 100 ML IV SCH ×2 (09:47→20:51)
[2022-01-04] MEDS ORDERED: MELA10CA PO (10:13)
[2022-01-04] MEDS ORDERED: HYDR-643 PO (10:13)
[2022-01-04] MEDS ORDERED: LISI10TA22 PO (10:13)
[2022-01-04] MEDS ORDERED: FOLI1TAB11 PO (10:13)
[2022-01-04] MEDS ORDERED: HOME MED LIST COMPLETE! XX SCH (10:15)
[2022-01-04 11:20] VITALS: BP 102/50
[2022-01-04] MEDS: KCL 20MEQ in NS 1000ML 1,000 ML IV SCH ×3 (11:38→23:20)
[2022-01-04] MEDS: HEPARIN SOD (PORCINE) 5000UNITS/ML 1ML VIAL/SYRINGE SC SCH ×2 (11:40→21:52)
[2022-01-04 16:18] VITALS: BP 104/58
[2022-01-04] MEDS ORDERED: LEVALBUTEROL 1.25 MG/0.5 ML CONCENTRATE NEB INH PRN (20:10)
[2022-01-04 20:48] VITALS: BP 90/56
[2022-01-04] MEDS: ONDANSETRON 4MG/2ML VIAL IV PRN (20:50)
[2022-01-04] MEDS: PANTOPRAZOLE 40MG VIAL IV SCH (20:50)
[2022-01-04 21:07] LABS: ALBUMIN 1.4 GM/DL (3.2-5.2); BILIRUBIN,TOTAL 9.6 MG/DL (0.2-1.0); CALCIUM LEVEL 7.5 MG/DL (8.8-10.2); CREATININE FOR GFR 1.59 MG/DL (0.70-1.30); GLOMERULAR FILTRATION RATE 47.4 (>49); POTASSIUM SERUM 2.3 MEQ/L (3.5-5.1); TOTAL PROTEIN 4.2 GM/DL (6.4-8.2)
[2022-01-04 21:40] VITALS: BP 88/48
[2022-01-04 22:00] VITALS: BP 88/48
[2022-01-04 22:38] LABS: HEMATOCRIT 32.9 % (42.0-52.0); HEMOGLOBIN 11.9 g/dl (13.5-17.5)
[2022-01-04] MEDS: PANTOPRAZOLE SODIUM 40 MG in D5W 50 ML IV SCH (22:50)
[2022-01-04] MEDS ORDERED: LIDOCAINE 2% 100MG/5ML SDV (FOR ANES.) As Ordered ONE (22:55)
[2022-01-04] MEDS ORDERED: SUCCINYLCHOLINE 100 MG/5 ML SYRINGE (J0330) As Ordered ONE (22:55)
[2022-01-04] MEDS ORDERED: propofoL 200 MG/20 ML VIAL As Ordered ONE (22:55)
[2022-01-04] MEDS ORDERED: ROCURONIUM BROMIDE 50 MG/5 ML VIAL As Ordered ONE (22:55)
[2022-01-04] MEDS ORDERED: fentaNYL 100 MCG/2 ML INJECTION As Ordered ONE (22:56)
[2022-01-04] MEDS ORDERED: dexameTHASONE 4 MG/ML 1ML VIAL (J1100 PER 1MG) As Ordered ONE (22:56)
[2022-01-04] MEDS ORDERED: ONDANSETRON 4MG/2ML VIAL As Ordered ONE (22:56)
[2022-01-04] MEDS ORDERED: MIDAZOLAM INJ 2MG/2ML VIAL (J2250 PER 1MG) As Ordered ONE (22:56)
[2022-01-04] MEDS ORDERED: ALBUTEROL SULFATE 2.5 MG/0.5 ML INH NEB SOLN INH ONE (23:05)
[2022-01-04] MEDS ORDERED: INSULIN LISPRO (NovoLOG) PER UNIT SC PRN (23:05)
[2022-01-04] MEDS ORDERED: MIDAZOLAM INJ 2MG/2ML VIAL (J2250 PER 1MG) IV PRN (23:05)
[2022-01-04] MEDS ORDERED: LR 1,000 ML IV SCH (23:05)
[2022-01-04] MEDS ORDERED: VASOPRESSIN INJ 20 UNITS/ML VIAL As Ordered ONE (23:51)
[2022-01-05] VITALS (105 sets, daily range): BP systolic 60–170; BP diastolic 40–96
[2022-01-05] MEDS ORDERED: KCL 10MEQ/100ML SWI (KRUN) 10 MEQ in IV 1 EA IV SCH ×2
[2022-01-05] MEDS ORDERED: methylPREDNISolone 40MG 1ML VIAL IV SCH (00:45)
[2022-01-05] MEDS ORDERED: ePHEDrine SULFATE 25 MG/5 ML(5MG/ML) SYRINGE As Ordered ONE (01:47)
[2022-01-05] MEDS ORDERED: PHENYLephrine 500MCG 5ML (100MCG/ML) SYRINGE As Ordered ONE (01:47)
[2022-01-05 02:53] LABS: BASO # 0.1 10^3/uL (0.0-0.2); BASO % 0.7 % (0.0-1.0); EOS % 0.2 % (0.0-3.0); HEMATOCRIT 39.8 % (42.0-52.0); LYMPH # 1.7 10^3/uL (1.5-5.0); LYMPH % 8.6 % (24.0-44.0); MEAN CORPUSCULAR HEMOGLOBIN 35.6 pg (27.0-33.0); MEAN CORPUSCULAR HGB CONC 35.7 g/dl (32.0-36.5); MEAN CORPUSCULAR VOLUME 99.7 fl (80.0-96.0); MONO # 0.7 10^3/uL (0.0-0.8); MONO % 3.3 % (2.0-8.0); NEUTROPHILS # 17.1 10^3/uL (1.5-8.5); NEUTROPHILS % 84.7 % (36.0-66.0); PLATELET COUNT, AUTOMATED 282 10^3/uL (150-450); RED BLOOD COUNT 3.99 10^6/uL (4.30-6.10); WHITE BLOOD COUNT 20.1 10^3/uL (4.0-10.0)
[2022-01-05 02:57] LABS: HEMOGLOBIN 14.2 g/dl (13.5-17.5)
[2022-01-05] MEDS: PANTOPRAZOLE SODIUM 40 MG in D5W 50 ML IV SCH (03:01)
[2022-01-05] MEDS: KCL 20MEQ IN 100ML SWI (KRUN) 20 MEQ in IV 1 EA IV SCH ×10 (03:01→11:38)
[2022-01-05 03:04] LABS: INR 1.83; PROTHROMBIN TIME 21.6 SECONDS (12.7-14.5)
[2022-01-05 03:35] LABS: ALBUMIN 1.7 GM/DL (3.2-5.2); BILIRUBIN,TOTAL 10.5 MG/DL (0.2-1.0); CALCIUM LEVEL 6.8 MG/DL (8.8-10.2); CREATININE FOR GFR 1.66 MG/DL (0.70-1.30); GLOMERULAR FILTRATION RATE 45.1 (>49); POTASSIUM SERUM 2.4 MEQ/L (3.5-5.1); TOTAL PROTEIN 4.6 GM/DL (6.4-8.2)
[2022-01-05] MEDS: MIDAZOLAM INJ 2MG/2ML VIAL (J2250 PER 1MG) IV PRN ×5 (03:59→18:08)
[2022-01-05] MEDS: dexmedeTOMidine 200 MCG in IV 1 EA IV SCH ×6 (04:15→22:06)
[2022-01-05] MEDS: fentaNYL 100 MCG/2 ML INJECTION IV PRN (04:22)
[2022-01-05] MEDS: KCL 20MEQ in NS 1000ML 1,000 ML IV SCH ×3 (05:34→20:43)
[2022-01-05] MEDS ORDERED: NS 1,000 ML IV ONE (06:20)
[2022-01-05] MEDS: THIAMINE INJection 500 MG in NS 100 ML IV SCH ×3 (06:24→22:05)
[2022-01-05 07:23] LABS: BASO % 0.2 % (0.0-1.0); EOS % 0.1 % (0.0-3.0); HEMATOCRIT 35.1 % (42.0-52.0); HEMOGLOBIN 12.3 g/dl (13.5-17.5); LYMPH # 1.3 10^3/uL (1.5-5.0); LYMPH % 8.1 % (24.0-44.0); MEAN CORPUSCULAR HEMOGLOBIN 34.6 pg (27.0-33.0); MEAN CORPUSCULAR VOLUME 98.6 fl (80.0-96.0); MONO # 0.6 10^3/uL (0.0-0.8); MONO % 3.6 % (2.0-8.0); NEUTROPHILS # 13.6 10^3/uL (1.5-8.5); NEUTROPHILS % 86.4 % (36.0-66.0); PLATELET COUNT, AUTOMATED 210 10^3/uL (150-450); RED BLOOD COUNT 3.56 10^6/uL (4.30-6.10); WHITE BLOOD COUNT 15.8 10^3/uL (4.0-10.0)
[2022-01-05] MEDS ORDERED: NOREPINEPHRINE BITARTRATE 8 MG in D5W 492 ML IV SCH (07:55)
[2022-01-05 07:59] LABS: ALBUMIN 1.3 GM/DL (3.2-5.2); BILIRUBIN,TOTAL 9.7 MG/DL (0.2-1.0); CALCIUM LEVEL 6.4 MG/DL (8.8-10.2); CREATININE FOR GFR 1.74 MG/DL (0.70-1.30); GLOMERULAR FILTRATION RATE 42.7 (>49); MAGNESIUM LEVEL 1.8 MG/DL (1.8-2.4); POTASSIUM SERUM 2.8 MEQ/L (3.5-5.1)
[2022-01-05] MEDS ORDERED: cefTRIAXone SOD 1 GM in D5W MINI-BAG PLUS 50 ML IV SCH (08:00)
[2022-01-05] MEDS ORDERED: NOREPINEPHRINE 4 MG/4 ML AMP As Ordered ONE (08:02)
[2022-01-05] MEDS ORDERED: KCL 20MEQ IN 100ML SWI (KRUN) 20 MEQ in IV 1 EA IV ONE ×2 (08:05)
[2022-01-05] MEDS: NOREPINEPHRINE BITARTRATE 8 MG in D5W 492 ML IV SCH ×3 (08:36→22:18)
[2022-01-05] MEDS: MULTIVITAMINS/MINERALS THERAP 1 TAB PO SCH (09:00)
[2022-01-05] MEDS: FOLIC ACID 1 MG TAB PO SCH (09:00)
[2022-01-05] MEDS: DOXYCYCLINE HYCLATE 100 MG in D5W MINI-BAG PLUS 100 ML IV SCH ×2 (09:57→20:43)
[2022-01-05] MEDS: PANTOPRAZOLE 40MG VIAL IV SCH ×2 (09:57→20:43)
[2022-01-05] MEDS ORDERED: POTASSIUM PHOSPHATE INJ 18 MMOL in D5W 250 ML IV ONE (11:00)
[2022-01-05] MEDS ORDERED: PIPERACILLIN/TAZOBACTAM SOD 2.25 GM in D5W MINI-BAG PLUS 50 ML IV SCH (12:35)
[2022-01-05] MEDS: PIPERACILLIN/TAZOBACTAM SOD 4.5 GM in D5W MINI-BAG PLUS 50 ML IV SCH ×2 (13:59→22:49)
[2022-01-05] MEDS: CHLORHEXIDINE GLUCONATE 0.12 % 15ML UDC (PERIDEX ORAL RINSE) MT SCH ×2 (13:59→20:43)
[2022-01-05 14:18] LABS: CENTRAL VEN BASE EXCESS -9.4
[2022-01-05 14:23] LABS: BASO % 0.3 % (0.0-1.0); HEMATOCRIT 34.3 % (42.0-52.0); HEMOGLOBIN 12.2 g/dl (13.5-17.5); LYMPH # 1.4 10^3/uL (1.5-5.0); LYMPH % 9.1 % (24.0-44.0); MEAN CORPUSCULAR HEMOGLOBIN 35.5 pg (27.0-33.0); MEAN CORPUSCULAR HGB CONC 35.6 g/dl (32.0-36.5); MEAN CORPUSCULAR VOLUME 99.7 fl (80.0-96.0); MONO # 0.4 10^3/uL (0.0-0.8); MONO % 2.9 % (2.0-8.0); NEUTROPHILS # 13.1 10^3/uL (1.5-8.5); NEUTROPHILS % 86.3 % (36.0-66.0); PLATELET COUNT, AUTOMATED 185 10^3/uL (150-450); RED BLOOD COUNT 3.44 10^6/uL (4.30-6.10); WHITE BLOOD COUNT 15.2 10^3/uL (4.0-10.0)
[2022-01-05 14:54] LABS: ALBUMIN 1.9 GM/DL (3.2-5.2); CALCIUM LEVEL 6.5 MG/DL (8.8-10.2); CREATININE FOR GFR 1.76 MG/DL (0.70-1.30); GLOMERULAR FILTRATION RATE 42.1 (>49); PHOSPHORUS LEVEL 1.7 MG/DL (2.5-4.9); POTASSIUM SERUM 3.6 MEQ/L (3.5-5.1); TOTAL PROTEIN 4.5 GM/DL (6.4-8.2)
[2022-01-05] MEDS: OCTREOTIDE ACETATE 1,200 MCG in NS 238.8 ML IV SCH (14:56)
[2022-01-05 16:29] LABS: VENOUS BASE EXCESS -8.5 (-2.0-2.0); VENOUS HCO3 17.3 MEQ/L (23.0-27.0); VENOUS O2 SATURATION 88.4 % (60.0-80.0); VENOUS PARTIAL PRESSURE CO2 36.8 mmHg (38.0-50.0); VENOUS PARTIAL PRESSURE O2 58.4 mmHg (30.0-50.0); VENOUS PH 7.289 UNITS (7.330-7.430); VENOUS STANDARD HCO3 17.5 MEQ/L; VENOUS TOTAL CO2 18.4 MEQ/L (24.0-28.0)
[2022-01-05] MEDS: metroNIDAZOLE 500 MG in IV 1 EA IV SCH (16:47)
[2022-01-05] MEDS ORDERED: POTASSIUM PHOSPHATE INJ 15 MMOL in D5W 250 ML IV ONE (17:00)
[2022-01-05 18:15] LABS: BASO # 0.1 10^3/uL (0.0-0.2); BASO % 0.4 % (0.0-1.0); HEMATOCRIT 36.2 % (42.0-52.0); HEMOGLOBIN 12.6 g/dl (13.5-17.5); LYMPH # 1.8 10^3/uL (1.5-5.0); LYMPH % 10.2 % (24.0-44.0); MEAN CORPUSCULAR HEMOGLOBIN 34.9 pg (27.0-33.0); MEAN CORPUSCULAR HGB CONC 34.8 g/dl (32.0-36.5); MEAN CORPUSCULAR VOLUME 100.3 fl (80.0-96.0); MONO # 0.6 10^3/uL (0.0-0.8); MONO % 3.3 % (2.0-8.0); NEUTROPHILS % 84.6 % (36.0-66.0); PLATELET COUNT, AUTOMATED 199 10^3/uL (150-450); RED BLOOD COUNT 3.61 10^6/uL (4.30-6.10); WHITE BLOOD COUNT 17.8 10^3/uL (4.0-10.0)
[2022-01-06] VITALS (92 sets, daily range): BP systolic 74–114; BP diastolic 52–74
[2022-01-06] MEDS: metroNIDAZOLE 500 MG in IV 1 EA IV SCH (00:01)
[2022-01-06] MEDS: MIDAZOLAM INJ 2MG/2ML VIAL (J2250 PER 1MG) IV PRN ×9 (00:08→23:21)
[2022-01-06] MEDS: dexmedeTOMidine 200 MCG in IV 1 EA IV SCH ×9 (01:53→23:14)
[2022-01-06] MEDS: fentaNYL 100 MCG/2 ML INJECTION IV PRN ×8 (03:00→23:22)
[2022-01-06] MEDS: KCL 20MEQ in NS 1000ML 1,000 ML IV SCH (04:09)
[2022-01-06] MEDS: PIPERACILLIN/TAZOBACTAM SOD 4.5 GM in D5W MINI-BAG PLUS 50 ML IV SCH ×3 (05:11→21:38)
[2022-01-06 05:29] LABS: HEMATOCRIT 36.4 % (42.0-52.0); HEMOGLOBIN 12.8 g/dl (13.5-17.5); MEAN CORPUSCULAR HEMOGLOBIN 35.5 pg (27.0-33.0); MEAN CORPUSCULAR HGB CONC 35.2 g/dl (32.0-36.5); MEAN CORPUSCULAR VOLUME 100.8 fl (80.0-96.0); PLATELET COUNT, AUTOMATED 206 10^3/uL (150-450); RED BLOOD COUNT 3.61 10^6/uL (4.30-6.10); WHITE BLOOD COUNT 17.3 10^3/uL (4.0-10.0)
[2022-01-06 05:54] LABS: ALBUMIN 1.7 GM/DL (3.2-5.2); BILIRUBIN,TOTAL 8.6 MG/DL (0.2-1.0); CALCIUM LEVEL 6.7 MG/DL (8.8-10.2); CREATININE FOR GFR 1.73 MG/DL (0.70-1.30); MAGNESIUM LEVEL 1.7 MG/DL (1.8-2.4); POTASSIUM SERUM 3.6 MEQ/L (3.5-5.1); TOTAL PROTEIN 4.5 GM/DL (6.4-8.2)
[2022-01-06] MEDS: THIAMINE INJection 500 MG in NS 100 ML IV SCH ×3 (06:33→23:14)
[2022-01-06] MEDS ORDERED: MAG SULF 1GM/100ML (MAG RUN) 1 GM in IV 1 EA IV ONE (06:35)
[2022-01-06 06:50] LABS: PHOSPHORUS LEVEL 1.4 MG/DL (2.5-4.9)
[2022-01-06] MEDS: CHLORHEXIDINE GLUCONATE 0.12 % 15ML UDC (PERIDEX ORAL RINSE) MT SCH ×2 (08:31→20:18)
[2022-01-06] MEDS: PANTOPRAZOLE 40MG VIAL IV SCH ×2 (08:31→20:18)
[2022-01-06] MEDS ORDERED: POTASSIUM PHOSPHATE INJ 15 MMOL in D5W 250 ML IV ONE (10:00)
[2022-01-06] MEDS: FOLIC ACID 1 MG in NS 50 ML IV SCH (10:20)
[2022-01-06 11:57] LABS: VENOUS BASE EXCESS -10.2 (-2.0-2.0); VENOUS HCO3 15.5 MEQ/L (23.0-27.0); VENOUS O2 SATURATION 86.4 % (60.0-80.0); VENOUS PARTIAL PRESSURE CO2 33.9 mmHg (38.0-50.0); VENOUS PARTIAL PRESSURE O2 55.6 mmHg (30.0-50.0); VENOUS PH 7.278 UNITS (7.330-7.430); VENOUS STANDARD HCO3 16.2 MEQ/L; VENOUS TOTAL CO2 16.5 MEQ/L (24.0-28.0)
[2022-01-06] MEDS ORDERED: SODIUM BICARBONATE 8.4% INJ 50 ML SYRINGE IV ONE (12:35)
[2022-01-06] MEDS: OCTREOTIDE ACETATE 1,200 MCG in NS 238.8 ML IV SCH (15:11)
[2022-01-06 17:29] LABS: CALCIUM LEVEL 6.8 MG/DL (8.8-10.2); CREATININE FOR GFR 1.63 MG/DL (0.70-1.30); MAGNESIUM LEVEL 1.9 MG/DL (1.8-2.4); PHOSPHORUS LEVEL 1.7 MG/DL (2.5-4.9); POTASSIUM SERUM 3.9 MEQ/L (3.5-5.1)
[2022-01-06] MEDS: NOREPINEPHRINE BITARTRATE 8 MG in D5W 492 ML IV SCH (21:38)
[2022-01-07] VITALS (96 sets, daily range): BP systolic 74–170; BP diastolic 45–76
[2022-01-07] MEDS: fentaNYL 100 MCG/2 ML INJECTION IV PRN ×3 (01:35→07:45)
[2022-01-07] MEDS: MIDAZOLAM INJ 2MG/2ML VIAL (J2250 PER 1MG) IV PRN ×6 (01:35→20:32)
[2022-01-07] MEDS: dexmedeTOMidine 200 MCG in IV 1 EA IV SCH ×4 (02:08→10:14)
[2022-01-07 05:18] LABS: HEMATOCRIT 35.9 % (42.0-52.0); HEMOGLOBIN 12.6 g/dl (13.5-17.5); MEAN CORPUSCULAR HEMOGLOBIN 36.2 pg (27.0-33.0); MEAN CORPUSCULAR HGB CONC 35.1 g/dl (32.0-36.5); MEAN CORPUSCULAR VOLUME 103.2 fl (80.0-96.0); PLATELET COUNT, AUTOMATED 133 10^3/uL (150-450); RED BLOOD COUNT 3.48 10^6/uL (4.30-6.10); WHITE BLOOD COUNT 10.6 10^3/uL (4.0-10.0)
[2022-01-07] MEDS: PIPERACILLIN/TAZOBACTAM SOD 4.5 GM in D5W MINI-BAG PLUS 50 ML IV SCH ×3 (05:36→21:36)
[2022-01-07 05:51] LABS: ALBUMIN 1.5 GM/DL (3.2-5.2); CALCIUM LEVEL 6.4 MG/DL (8.8-10.2); CREATININE FOR GFR 1.49 MG/DL (0.70-1.30); MAGNESIUM LEVEL 1.7 MG/DL (1.8-2.4); POTASSIUM SERUM 3.9 MEQ/L (3.5-5.1); TOTAL PROTEIN 3.9 GM/DL (6.4-8.2)
[2022-01-07 06:21] LABS: ABG BASE EXCESS -5.6 (-2.0-2.0); ABG HCO3 17.8 MEQ/L (22.0-26.0); ABG O2 SATURATION 93.3 % (95.0-99.0); ABG PARTIAL PRESSURE CO2 29.3 mmHg (35.0-45.0); ABG PARTIAL PRESSURE O2 66.1 mmHg (75.0-100.0); ABG STANDARD HCO3 19.8 MEQ/L (22.0-26.0); ABG TOTAL CO2 18.7 MEQ/L (23.0-31.0); ABG pH (ARTERIAL) 7.402 UNITS (7.350-7.450)
[2022-01-07] MEDS: THIAMINE INJection 500 MG in NS 100 ML IV SCH ×3 (06:48→21:37)
[2022-01-07] MEDS: PANTOPRAZOLE 40MG VIAL IV SCH ×2 (08:22→20:27)
[2022-01-07] MEDS: CHLORHEXIDINE GLUCONATE 0.12 % 15ML UDC (PERIDEX ORAL RINSE) MT SCH ×2 (08:22→20:27)
[2022-01-07] MEDS: propofoL 1,000 MG in IV 1 EA IV SCH ×2 (12:21→19:30)
[2022-01-07] MEDS: FOLIC ACID 1 MG in NS 50 ML IV SCH (14:00)
[2022-01-07] MEDS: NOREPINEPHRINE BITARTRATE 8 MG in D5W 492 ML IV SCH (22:00)
[2022-01-08] VITALS (78 sets, daily range): BP systolic 67–156; BP diastolic 41–75
[2022-01-08] MEDS: MIDAZOLAM INJ 2MG/2ML VIAL (J2250 PER 1MG) IV PRN (01:07)
[2022-01-08] MEDS: propofoL 1,000 MG in IV 1 EA IV SCH ×2 (02:19→06:11)
[2022-01-08 04:30] LABS: HEMOGLOBIN 13.3 g/dl (13.5-17.5); MEAN CORPUSCULAR HEMOGLOBIN 35.8 pg (27.0-33.0); MEAN CORPUSCULAR HGB CONC 34.1 g/dl (32.0-36.5); MEAN CORPUSCULAR VOLUME 104.8 fl (80.0-96.0); PLATELET COUNT, AUTOMATED 126 10^3/uL (150-450); RED BLOOD COUNT 3.72 10^6/uL (4.30-6.10); WHITE BLOOD COUNT 15.9 10^3/uL (4.0-10.0)
[2022-01-08] MEDS: PIPERACILLIN/TAZOBACTAM SOD 4.5 GM in D5W MINI-BAG PLUS 50 ML IV SCH ×3 (05:03→20:28)
[2022-01-08 05:07] LABS: ALBUMIN 1.3 GM/DL (3.2-5.2); CALCIUM LEVEL 6.9 MG/DL (8.8-10.2); CREATININE FOR GFR 1.31 MG/DL (0.70-1.30); GLOMERULAR FILTRATION RATE 59.2 (>49); MAGNESIUM LEVEL 1.7 MG/DL (1.8-2.4); PHOSPHORUS LEVEL 1.3 MG/DL (2.5-4.9); TOTAL PROTEIN 3.9 GM/DL (6.4-8.2)
[2022-01-08] MEDS: THIAMINE INJection 500 MG in NS 100 ML IV SCH ×3 (06:10→21:31)
[2022-01-08] MEDS ORDERED: MAG SULF 1GM/100ML (MAG RUN) 1 GM in IV 1 EA IV ONE (09:00)
[2022-01-08] MEDS: PANTOPRAZOLE 40MG VIAL IV SCH ×2 (09:06→20:28)
[2022-01-08] MEDS: CHLORHEXIDINE GLUCONATE 0.12 % 15ML UDC (PERIDEX ORAL RINSE) MT SCH (09:06)
[2022-01-08] MEDS: NOREPINEPHRINE BITARTRATE 8 MG in D5W 492 ML IV SCH ×2 (09:07→12:00)
[2022-01-08] MEDS ORDERED: POTASSIUM PHOSPHATE INJ 30 MMOL in D5W 500 ML IV ONE (10:00)
[2022-01-08] MEDS: FOLIC ACID 1 MG in NS 50 ML IV SCH (13:59)
[2022-01-08] MEDS: methylPREDNISolone 40MG 1ML VIAL IV SCH (16:06)
[2022-01-09] VITALS (32 sets, daily range): BP systolic 95–163; BP diastolic 54–93
[2022-01-09] MEDS: PIPERACILLIN/TAZOBACTAM SOD 4.5 GM in D5W MINI-BAG PLUS 50 ML IV SCH ×3 (04:33→20:22)
[2022-01-09 04:46] LABS: HEMOGLOBIN 12.6 g/dl (13.5-17.5); MEAN CORPUSCULAR HEMOGLOBIN 35.3 pg (27.0-33.0); MEAN CORPUSCULAR HGB CONC 34.1 g/dl (32.0-36.5); MEAN CORPUSCULAR VOLUME 103.6 fl (80.0-96.0); PLATELET COUNT, AUTOMATED 109 10^3/uL (150-450); RED BLOOD COUNT 3.57 10^6/uL (4.30-6.10); WHITE BLOOD COUNT 15.9 10^3/uL (4.0-10.0)
[2022-01-09 04:55] LABS: INR 1.92; PROTHROMBIN TIME 22.4 SECONDS (12.7-14.5)
[2022-01-09 05:10] LABS: ALBUMIN 1.4 GM/DL (3.2-5.2); ALT/SGPT 79 U/L (12-78); BILIRUBIN,TOTAL 14.2 MG/DL (0.2-1.0); BLOOD UREA NITROGEN 19 MG/DL (7-18); CALCIUM LEVEL 6.8 MG/DL (8.8-10.2); CARBON DIOXIDE LEVEL 20 MEQ/L (21-32); CHLORIDE LEVEL 112 MEQ/L (98-107); CREATININE FOR GFR 1.27 MG/DL (0.70-1.30); GLOMERULAR FILTRATION RATE > 60.0 (>49); GLUCOSE, FASTING 107 MG/DL (70-100); MAGNESIUM LEVEL 1.9 MG/DL (1.8-2.4); POTASSIUM SERUM 3.8 MEQ/L (3.5-5.1); SODIUM LEVEL 142 MEQ/L (136-145); TOTAL PROTEIN 3.9 GM/DL (6.4-8.2)
[2022-01-09] MEDS: THIAMINE INJection 500 MG in NS 100 ML IV SCH ×3 (05:36→21:37)
[2022-01-09 06:01] LABS: ABG BASE EXCESS -4.6 (-2.0-2.0); ABG HCO3 18.9 MEQ/L (22.0-26.0); ABG PARTIAL PRESSURE CO2 30.3 mmHg (35.0-45.0); ABG PARTIAL PRESSURE O2 67.4 mmHg (75.0-100.0); ABG STANDARD HCO3 20.6 MEQ/L (22.0-26.0); ABG TOTAL CO2 19.8 MEQ/L (23.0-31.0); ABG pH (ARTERIAL) 7.412 UNITS (7.350-7.450)
[2022-01-09 10:43] LABS: PHOSPHORUS LEVEL 1.9 MG/DL (2.5-4.9)
[2022-01-09] MEDS: FOLIC ACID 1 MG in NS 50 ML IV SCH (11:00)
[2022-01-09] MEDS: PANTOPRAZOLE 40MG VIAL IV SCH ×2 (11:22→20:22)
[2022-01-09] MEDS: NOREPINEPHRINE BITARTRATE 8 MG in D5W 492 ML IV SCH (11:22)
[2022-01-09] MEDS: methylPREDNISolone 40MG 1ML VIAL IV SCH (11:23)
[2022-01-09] MEDS ORDERED: POTASSIUM PHOSPHATE INJ 30 MMOL in D5W 500 ML IV ONE (17:00)
[2022-01-10] VITALS (23 sets, daily range): BP systolic 111–145; BP diastolic 73–88
[2022-01-10] MEDS: OCTREOTIDE ACETATE 1,200 MCG in NS 238.8 ML IV SCH ×2 (02:05→23:13)
[2022-01-10] MEDS ORDERED: OCTREOTIDE ACETATE 100MCG/ML VIAL **IV ADMINISTRATION ONLY IV ONE (02:35)
[2022-01-10 04:07] LABS: HEMATOCRIT 34.7 % (42.0-52.0); HEMOGLOBIN 11.8 g/dl (13.5-17.5); MEAN CORPUSCULAR HEMOGLOBIN 35.8 pg (27.0-33.0); MEAN CORPUSCULAR VOLUME 105.2 fl (80.0-96.0); PLATELET COUNT, AUTOMATED 105 10^3/uL (150-450); WHITE BLOOD COUNT 11.6 10^3/uL (4.0-10.0)
[2022-01-10 04:42] LABS: BLOOD UREA NITROGEN 24 MG/DL (7-18); CALCIUM LEVEL 7.5 MG/DL (8.8-10.2); CARBON DIOXIDE LEVEL 22 MEQ/L (21-32); CHLORIDE LEVEL 114 MEQ/L (98-107); CREATININE FOR GFR 1.26 MG/DL (0.70-1.30); GLOMERULAR FILTRATION RATE > 60.0 (>49); GLUCOSE, FASTING 141 MG/DL (70-100); POTASSIUM SERUM 3.9 MEQ/L (3.5-5.1); SODIUM LEVEL 146 MEQ/L (136-145)
[2022-01-10] MEDS: PIPERACILLIN/TAZOBACTAM SOD 4.5 GM in D5W MINI-BAG PLUS 50 ML IV SCH ×3 (04:42→21:47)
[2022-01-10 05:48] LABS: ABG BASE EXCESS -5.5 (-2.0-2.0); ABG HCO3 18.3 MEQ/L (22.0-26.0); ABG O2 SATURATION 97.1 % (95.0-99.0); ABG PARTIAL PRESSURE CO2 30.6 mmHg (35.0-45.0); ABG PARTIAL PRESSURE O2 89.4 mmHg (75.0-100.0); ABG STANDARD HCO3 19.9 MEQ/L (22.0-26.0); ABG TOTAL CO2 19.2 MEQ/L (23.0-31.0); ABG pH (ARTERIAL) 7.394 UNITS (7.350-7.450)
[2022-01-10] MEDS: THIAMINE INJection 500 MG in NS 100 ML IV SCH ×3 (05:51→23:12)
[2022-01-10 08:44] LABS: ALBUMIN 1.8 GM/DL (3.2-5.2); BILIRUBIN,DIRECT 13.3 MG/DL (0.0-0.2); BILIRUBIN,TOTAL 16.7 MG/DL (0.2-1.0); MAGNESIUM LEVEL 2.1 MG/DL (1.8-2.4); PHOSPHORUS LEVEL 3.2 MG/DL (2.5-4.9); TOTAL PROTEIN 4.3 GM/DL (6.4-8.2)
[2022-01-10] MEDS: PANTOPRAZOLE 40MG VIAL IV SCH ×2 (08:48→21:47)
[2022-01-10] MEDS: methylPREDNISolone 40MG 1ML VIAL IV SCH (08:48)
[2022-01-10] MEDS ORDERED: predniSONE 20 MG TAB PO SCH (09:00)
[2022-01-10] MEDS: FOLIC ACID 1 MG in NS 50 ML IV SCH (10:59)
[2022-01-10 17:33] LABS: ABG BASE EXCESS -4.8 (-2.0-2.0); ABG HCO3 19.3 MEQ/L (22.0-26.0); ABG O2 SATURATION 93.5 % (95.0-99.0); ABG PARTIAL PRESSURE CO2 33.1 mmHg (35.0-45.0); ABG PARTIAL PRESSURE O2 69.7 mmHg (75.0-100.0); ABG STANDARD HCO3 20.4 MEQ/L (22.0-26.0); ABG TOTAL CO2 20.3 MEQ/L (23.0-31.0); ABG pH (ARTERIAL) 7.384 UNITS (7.350-7.450)
[2022-01-11] VITALS (17 sets, daily range): BP systolic 120–142; BP diastolic 65–91
[2022-01-11] MEDS: PIPERACILLIN/TAZOBACTAM SOD 4.5 GM in D5W MINI-BAG PLUS 50 ML IV SCH ×3 (05:19→21:13)
[2022-01-11 05:53] LABS: HEMATOCRIT 35.7 % (42.0-52.0); HEMOGLOBIN 11.9 g/dl (13.5-17.5); MEAN CORPUSCULAR HEMOGLOBIN 35.5 pg (27.0-33.0); MEAN CORPUSCULAR HGB CONC 33.3 g/dl (32.0-36.5); MEAN CORPUSCULAR VOLUME 106.6 fl (80.0-96.0); PLATELET COUNT, AUTOMATED 124 10^3/uL (150-450); RED BLOOD COUNT 3.35 10^6/uL (4.30-6.10)
[2022-01-11 06:14] LABS: ALBUMIN 1.5 GM/DL (3.2-5.2); ALT/SGPT 89 U/L (12-78); BLOOD UREA NITROGEN 29 MG/DL (7-18); CALCIUM LEVEL 7.5 MG/DL (8.8-10.2); CARBON DIOXIDE LEVEL 22 MEQ/L (21-32); CHLORIDE LEVEL 119 MEQ/L (98-107); CREATININE FOR GFR 1.18 MG/DL (0.70-1.30); GLOMERULAR FILTRATION RATE > 60.0 (>49); GLUCOSE, FASTING 117 MG/DL (70-100); MAGNESIUM LEVEL 2.1 MG/DL (1.8-2.4); PHOSPHORUS LEVEL 3.1 MG/DL (2.5-4.9); POTASSIUM SERUM 4.1 MEQ/L (3.5-5.1); SODIUM LEVEL 148 MEQ/L (136-145); TOTAL PROTEIN 4.1 GM/DL (6.4-8.2)
[2022-01-11] MEDS: THIAMINE INJection 500 MG in NS 100 ML IV SCH ×3 (06:25→22:17)
[2022-01-11] MEDS: PANTOPRAZOLE 40MG VIAL IV SCH ×2 (08:54→21:13)
[2022-01-11] MEDS: methylPREDNISolone 40MG 1ML VIAL IV SCH (08:55)
[2022-01-11] MEDS: FOLIC ACID 1 MG in NS 50 ML IV SCH (11:10)
[2022-01-11] MEDS ORDERED: LIDOCAINE 1% MDV 20ML VIAL As Ordered ONE (14:32)
[2022-01-11] MEDS: SODIUM CHLORIDE 0.9% INJ 10 ML SYR IV SCH (18:00)
[2022-01-12] MEDS: PIPERACILLIN/TAZOBACTAM SOD 4.5 GM in D5W MINI-BAG PLUS 50 ML IV SCH (05:02)
[2022-01-12] MEDS: IPRATROPIUM 0.5MG/ALBUTEROL 2.5MG INH SOL UD 3ML (DUONEB) NEB PRN (05:19)
[2022-01-12 06:00] VITALS: BP 137/91
[2022-01-12] MEDS: SODIUM CHLORIDE 0.9% INJ 10 ML SYR IV SCH ×2 (06:26→17:47)
[2022-01-12] MEDS: THIAMINE INJection 500 MG in NS 100 ML IV SCH (06:26)
[2022-01-12 07:33] LABS: VENOUS BASE EXCESS -3.3 (-2.0-2.0); VENOUS HCO3 21.2 MEQ/L (23.0-27.0); VENOUS O2 SATURATION 98.2 % (60.0-80.0); VENOUS PARTIAL PRESSURE CO2 36.1 mmHg (38.0-50.0); VENOUS PARTIAL PRESSURE O2 121.3 mmHg (30.0-50.0); VENOUS PH 7.386 UNITS (7.330-7.430); VENOUS STANDARD HCO3 21.8 MEQ/L; VENOUS TOTAL CO2 22.3 MEQ/L (24.0-28.0)
[2022-01-12 07:40] LABS: HEMATOCRIT 36.9 % (42.0-52.0); MEAN CORPUSCULAR HEMOGLOBIN 34.7 pg (27.0-33.0); MEAN CORPUSCULAR HGB CONC 32.5 g/dl (32.0-36.5); MEAN CORPUSCULAR VOLUME 106.6 fl (80.0-96.0); PLATELET COUNT, AUTOMATED 114 10^3/uL (150-450); RED BLOOD COUNT 3.46 10^6/uL (4.30-6.10); WHITE BLOOD COUNT 9.2 10^3/uL (4.0-10.0)
[2022-01-12 08:12] LABS: ALBUMIN 1.5 GM/DL (3.2-5.2); ALT/SGPT 115 U/L (12-78); BILIRUBIN,TOTAL 13.4 MG/DL (0.2-1.0); BLOOD UREA NITROGEN 28 MG/DL (7-18); CALCIUM LEVEL 7.9 MG/DL (8.8-10.2); CARBON DIOXIDE LEVEL 22 MEQ/L (21-32); CHLORIDE LEVEL 119 MEQ/L (98-107); CREATININE FOR GFR 1.15 MG/DL (0.70-1.30); GLOMERULAR FILTRATION RATE > 60.0 (>49); GLUCOSE, FASTING 140 MG/DL (70-100); PHOSPHORUS LEVEL 2.2 MG/DL (2.5-4.9); POTASSIUM SERUM 3.6 MEQ/L (3.5-5.1); SODIUM LEVEL 148 MEQ/L (136-145); TOTAL PROTEIN 4.2 GM/DL (6.4-8.2)
[2022-01-12] MEDS: FOLIC ACID 1 MG in NS 50 ML IV SCH (10:23)
[2022-01-12] MEDS: PANTOPRAZOLE 40MG VIAL IV SCH ×2 (10:23→20:39)
[2022-01-12] MEDS: methylPREDNISolone 40MG 1ML VIAL IV SCH (10:23)
[2022-01-12] MEDS: SODIUM CHLORIDE 0.9% INJ 10 ML SYR IV PRN (11:20)
[2022-01-12 13:14] VITALS: O2SAT 89
[2022-01-12] MEDS: AUGMENTIN 875 MG TAB PO SCH ×2 (13:47→20:39)
[2022-01-12 14:00] VITALS: BP 139/88
[2022-01-12] MEDS: THIAMINE 100 MG TAB PO SCH (20:39)
[2022-01-12] MEDS ORDERED: THIAMINE 100 MG TAB PO SCH (21:00)
[2022-01-12 21:39] VITALS: BP 136/89
[2022-01-13] MEDS: SODIUM CHLORIDE 0.9% INJ 10 ML SYR IV PRN ×2 (03:01→20:47)
[2022-01-13 05:17] LABS: HEMATOCRIT 37.8 % (42.0-52.0); HEMOGLOBIN 12.7 g/dl (13.5-17.5); MEAN CORPUSCULAR HEMOGLOBIN 36.2 pg (27.0-33.0); MEAN CORPUSCULAR HGB CONC 33.6 g/dl (32.0-36.5); MEAN CORPUSCULAR VOLUME 107.7 fl (80.0-96.0); PLATELET COUNT, AUTOMATED 139 10^3/uL (150-450); RED BLOOD COUNT 3.51 10^6/uL (4.30-6.10)
[2022-01-13] MEDS: SODIUM CHLORIDE 0.9% INJ 10 ML SYR IV SCH ×2 (05:20→17:50)
[2022-01-13 05:41] LABS: ALBUMIN 1.6 GM/DL (3.2-5.2); ALT/SGPT 139 U/L (12-78); BILIRUBIN,TOTAL 14.5 MG/DL (0.2-1.0); BLOOD UREA NITROGEN 26 MG/DL (7-18); CALCIUM LEVEL 7.9 MG/DL (8.8-10.2); CARBON DIOXIDE LEVEL 25 MEQ/L (21-32); CHLORIDE LEVEL 119 MEQ/L (98-107); CREATININE FOR GFR 0.96 MG/DL (0.70-1.30); GLOMERULAR FILTRATION RATE > 60.0 (>49); GLUCOSE, FASTING 115 MG/DL (70-100); MAGNESIUM LEVEL 1.9 MG/DL (1.8-2.4); PHOSPHORUS LEVEL 2.1 MG/DL (2.5-4.9); POTASSIUM SERUM 3.7 MEQ/L (3.5-5.1); SODIUM LEVEL 149 MEQ/L (136-145); TOTAL PROTEIN 4.5 GM/DL (6.4-8.2)
[2022-01-13 06:00] VITALS: BP 131/83
[2022-01-13] MEDS ORDERED: D5W/0.45% SODIUM CHLORIDE 1,000 ML IV SCH (07:30)
[2022-01-13] MEDS: AUGMENTIN 875 MG TAB PO SCH ×2 (08:10→20:47)
[2022-01-13] MEDS: PANTOPRAZOLE 40MG VIAL IV SCH ×2 (08:11→20:47)
[2022-01-13] MEDS: methylPREDNISolone 40MG 1ML VIAL IV SCH (08:11)
[2022-01-13] MEDS: THIAMINE 100 MG TAB PO SCH ×2 (08:11→20:47)
[2022-01-13] MEDS: FOLIC ACID 1 MG TAB PO SCH (08:28)
[2022-01-13 14:00] VITALS: BP 127/56
[2022-01-13 19:52] VITALS: BP 148/107
[2022-01-13 20:05] VITALS: BP 144/102
[2022-01-13] MEDS ORDERED: diphenhydrAMINE 50MG/ML VIAL (J1200) IV ONE (20:35)
[2022-01-13 21:14] VITALS: BP 148/106
[2022-01-13] MEDS: IPRATROPIUM 0.5MG/ALBUTEROL 2.5MG INH SOL UD 3ML (DUONEB) NEB PRN (21:36)
[2022-01-13 22:03] LABS: NT-PRO BNP 5742 PG/ML (<125)
[2022-01-13] MEDS ORDERED: FUROSEMIDE 20MG/2ML VIAL (J1940) IV ONE (22:05)
[2022-01-13 22:08] LABS: ABG BASE EXCESS -3.1 (-2.0-2.0); ABG HCO3 19.9 MEQ/L (22.0-26.0); ABG O2 SATURATION 86.5 % (95.0-99.0); ABG PARTIAL PRESSURE CO2 30.3 mmHg (35.0-45.0); ABG PARTIAL PRESSURE O2 50.6 mmHg (75.0-100.0); ABG STANDARD HCO3 21.7 MEQ/L (22.0-26.0); ABG TOTAL CO2 20.9 MEQ/L (23.0-31.0); ABG pH (ARTERIAL) 7.436 UNITS (7.350-7.450)
[2022-01-13] MEDS ORDERED: MORPHINE 2 MG/ML 1ML VIAL IV ONE (22:20)
[2022-01-13 23:04] VITALS: BP 144/106
[2022-01-13] MEDS ORDERED: LORazepam 2 MG/ML VIAL IV ONE (23:35)
[2022-01-13] MEDS ORDERED: LORazepam 2 MG/ML VIAL As Ordered ONE (23:54)
[2022-01-14] VITALS (15 sets, daily range): BP systolic 106–148; BP diastolic 70–106; O2SAT 85–95
[2022-01-14] MEDS: IPRATROPIUM 0.02% SOLN 0.5MG 2.5ML NEB INH SCH ×4 (01:30→19:56)
[2022-01-14] MEDS: LEVALBUTEROL 1.25 MG/0.5 ML CONCENTRATE NEB INH SCH ×4 (01:30→19:56)
[2022-01-14] MEDS: SODIUM CHLORIDE 0.9% INJ 10 ML SYR IV SCH ×2 (04:45→17:11)
[2022-01-14 07:43] LABS: HEMATOCRIT 39.3 % (42.0-52.0); HEMOGLOBIN 13.4 g/dl (13.5-17.5); MEAN CORPUSCULAR HEMOGLOBIN 36.4 pg (27.0-33.0); MEAN CORPUSCULAR HGB CONC 34.1 g/dl (32.0-36.5); MEAN CORPUSCULAR VOLUME 106.8 fl (80.0-96.0); PLATELET COUNT, AUTOMATED 182 10^3/uL (150-450); RED BLOOD COUNT 3.68 10^6/uL (4.30-6.10); WHITE BLOOD COUNT 19.3 10^3/uL (4.0-10.0)
[2022-01-14 07:56] LABS: INR 1.74; PROTHROMBIN TIME 20.8 SECONDS (12.7-14.5)
[2022-01-14 08:12] LABS: ALBUMIN 1.7 GM/DL (3.2-5.2); ALT/SGPT 146 U/L (12-78); BILIRUBIN,TOTAL 14.8 MG/DL (0.2-1.0); BLOOD UREA NITROGEN 26 MG/DL (7-18); CALCIUM LEVEL 7.6 MG/DL (8.8-10.2); CARBON DIOXIDE LEVEL 23 MEQ/L (21-32); CHLORIDE LEVEL 115 MEQ/L (98-107); CREATININE FOR GFR 0.97 MG/DL (0.70-1.30); GLOMERULAR FILTRATION RATE > 60.0 (>49); GLUCOSE, FASTING 90 MG/DL (70-100); MAGNESIUM LEVEL 1.5 MG/DL (1.8-2.4); NT-PRO BNP 4236 PG/ML (<125); PHOSPHORUS LEVEL 2.1 MG/DL (2.5-4.9); POTASSIUM SERUM 3.6 MEQ/L (3.5-5.1); PREALBUMIN 10.5 MG/DL (20.0-40.0); SODIUM LEVEL 146 MEQ/L (136-145)
[2022-01-14] MEDS ORDERED: FUROSEMIDE 40MG/4ML VIAL (J1940) IV STA (08:55)
[2022-01-14] MEDS: PANTOPRAZOLE 40MG VIAL IV SCH ×2 (09:00→20:56)
[2022-01-14 09:01] LABS: HEPATITIS B CORE ANTIBODY IGM NEGATIVE (NEGATIVE); HEPATITIS B SURFACE ANTIGEN NEGATIVE (NEGATIVE); HEPATITIS C VIRUS ABY INDEX 0.1 INDEX (<0.8)
[2022-01-14] MEDS: methylPREDNISolone 40MG 1ML VIAL IV SCH ×2 (09:01→20:55)
[2022-01-14] MEDS: THIAMINE 100 MG TAB PO SCH ×2 (09:01→20:56)
[2022-01-14] MEDS: AUGMENTIN 875 MG TAB PO SCH ×2 (09:01→20:56)
[2022-01-14] MEDS: FOLIC ACID 1 MG TAB PO SCH (09:01)
[2022-01-14 09:07] LABS: VENOUS HCO3 22.3 MEQ/L (23.0-27.0); VENOUS O2 SATURATION 75.1 % (60.0-80.0); VENOUS PARTIAL PRESSURE CO2 36.6 mmHg (38.0-50.0); VENOUS PARTIAL PRESSURE O2 40.5 mmHg (30.0-50.0); VENOUS PH 7.402 UNITS (7.330-7.430); VENOUS SITE NOT GIVEN; VENOUS STANDARD HCO3 22.3 MEQ/L; VENOUS TOTAL CO2 23.4 MEQ/L (24.0-28.0)
[2022-01-14] MEDS ORDERED: IPRATROPIUM 0.5MG/ALBUTEROL 2.5MG INH SOL UD 3ML (DUONEB) NEB ONE (09:15)
[2022-01-14] MEDS ORDERED: POTASSIUM CHLORIDE 10MEQ SR TABLET PO ONE (11:50)
[2022-01-14] MEDS: MAG SULF 1GM/100ML (MAG RUN) 1 GM in IV 1 EA IV SCH ×4 (12:04→15:50)
[2022-01-14] MEDS ORDERED: POTASSIUM CHLORIDE 10% LIQ 20 MEQ/15 ML UDC PO ONE (12:10)
[2022-01-14] MEDS: NYSTATIN CREAM 15 GM TOP SCH (18:20)
[2022-01-14] MEDS: LEVALBUTEROL 1.25 MG/0.5 ML CONCENTRATE NEB INH PRN ×2 (21:34→21:37)
[2022-01-14] MEDS: ONDANSETRON 4MG/2ML VIAL IV PRN (21:54)
[2022-01-14] MEDS ORDERED: METOCLOPRAMIDE INJ 10MG/2ML VIAL (J2765 PER 1) IV ONE (23:00)
[2022-01-14] MEDS ORDERED: LORazepam 2 MG/ML VIAL IV ONE (23:00)
[2022-01-15] VITALS (17 sets, daily range): BP systolic 92–122; BP diastolic 60–98; O2SAT 86–97
[2022-01-15] MEDS: LEVALBUTEROL 1.25 MG/0.5 ML CONCENTRATE NEB INH SCH ×4 (03:07→19:47)
[2022-01-15] MEDS: IPRATROPIUM 0.02% SOLN 0.5MG 2.5ML NEB INH SCH ×4 (03:07→19:46)
[2022-01-15] MEDS: SODIUM CHLORIDE 0.9% INJ 10 ML SYR IV SCH ×2 (05:03→18:34)
[2022-01-15] MEDS: SODIUM CHLORIDE 0.9% INJ 10 ML SYR IV PRN (05:04)
[2022-01-15] MEDS: PANTOPRAZOLE 40MG VIAL IV SCH (08:34)
[2022-01-15] MEDS: AUGMENTIN 875 MG TAB PO SCH (08:34)
[2022-01-15] MEDS: THIAMINE 100 MG TAB PO SCH (08:34)
[2022-01-15] MEDS: FUROSEMIDE 40MG/4ML VIAL (J1940) IV SCH ×2 (08:34→17:00)
[2022-01-15] MEDS: FOLIC ACID 1 MG TAB PO SCH (08:34)
[2022-01-15] MEDS: NYSTATIN CREAM 15 GM TOP SCH (08:34)
[2022-01-15] MEDS: methylPREDNISolone 40MG 1ML VIAL IV SCH (08:34)
[2022-01-15 09:11] LABS: HEMATOCRIT 34.5 % (42.0-52.0); HEMOGLOBIN 11.7 g/dl (13.5-17.5); MEAN CORPUSCULAR HEMOGLOBIN 36.4 pg (27.0-33.0); MEAN CORPUSCULAR HGB CONC 33.9 g/dl (32.0-36.5); MEAN CORPUSCULAR VOLUME 107.5 fl (80.0-96.0); PLATELET COUNT, AUTOMATED 162 10^3/uL (150-450); RED BLOOD COUNT 3.21 10^6/uL (4.30-6.10); WHITE BLOOD COUNT 20.4 10^3/uL (4.0-10.0)
[2022-01-15 09:30] LABS: ALBUMIN 1.5 GM/DL (3.2-5.2); ALT/SGPT 222 U/L (12-78); BILIRUBIN,TOTAL 15.9 MG/DL (0.2-1.0); BLOOD UREA NITROGEN 27 MG/DL (7-18); CALCIUM LEVEL 7.8 MG/DL (8.8-10.2); CARBON DIOXIDE LEVEL 23 MEQ/L (21-32); CHLORIDE LEVEL 115 MEQ/L (98-107); CREATININE FOR GFR 0.92 MG/DL (0.70-1.30); GLOMERULAR FILTRATION RATE > 60.0 (>49); GLUCOSE, FASTING 165 MG/DL (70-100); MAGNESIUM LEVEL 2.1 MG/DL (1.8-2.4); PHOSPHORUS LEVEL 2.1 MG/DL (2.5-4.9); SODIUM LEVEL 147 MEQ/L (136-145); TOTAL PROTEIN 4.4 GM/DL (6.4-8.2)
[2022-01-15] MEDS ORDERED: ISOVUE-370 76% 100ML VIAL As Ordered ONE (14:29)
[2022-01-15] MEDS ORDERED: MIDODRINE 2.5 MG TAB PO SCH (17:40)
[2022-01-16] MEDS: LEVALBUTEROL 1.25 MG/0.5 ML CONCENTRATE NEB INH SCH ×2 (00:28→07:17)
[2022-01-16] MEDS: IPRATROPIUM 0.02% SOLN 0.5MG 2.5ML NEB INH SCH ×2 (00:28→07:18)
[2022-01-16] MEDS: LORazepam 2 MG/ML VIAL IV PRN ×4 (02:40→18:12)
[2022-01-16] MEDS: SODIUM CHLORIDE 0.9% INJ 10 ML SYR IV PRN (06:01)
[2022-01-16] MEDS: SODIUM CHLORIDE 0.9% INJ 10 ML SYR IV SCH ×2 (06:01→18:11)
[2022-01-16] MEDS: MORPHINE 2 MG/ML 1ML VIAL IV PRN ×3 (11:52→20:41)
[2022-01-17] MEDS: LORazepam 2 MG/ML VIAL IV PRN ×2 (00:48→23:39)
[2022-01-17] MEDS: MORPHINE 2 MG/ML 1ML VIAL IV PRN ×3 (00:49→23:38)
[2022-01-17] MEDS: SODIUM CHLORIDE 0.9% INJ 10 ML SYR IV SCH ×2 (05:09→17:35)
[2022-01-17] MEDS: SODIUM CHLORIDE 0.9% INJ 10 ML SYR IV PRN (17:35)
[2022-01-17] MEDS ORDERED: LORazepam 2 MG/ML VIAL As Ordered ONE (23:29)
[2022-01-18] MEDS: MORPHINE 2 MG/ML 1ML VIAL IV PRN ×3 (04:39→22:43)
[2022-01-18] MEDS: SODIUM CHLORIDE 0.9% INJ 10 ML SYR IV SCH ×2 (05:26→17:02)
[2022-01-18 15:10] LABS: BODY FLUID CULTURE Not indicated. (.); LEGIONELLA ANTIGEN URINE Negative (Negative); ORGANISM ID Not indicated. (.); SPECIMEN SOURCE Urine (.); URINE STREP PNEUMONIAE ANTIGEN Negative (Negative)
[2022-01-19] MEDS: MORPHINE 2 MG/ML 1ML VIAL IV PRN (02:09)
[2022-01-19] MEDS ORDERED: LORazepam 2 MG/ML VIAL As Ordered ONE ×2 (02:14→04:37)
[2022-01-19] MEDS: LORazepam 2 MG/ML VIAL IV PRN ×4 (02:19→18:38)
[2022-01-19] MEDS: MORPHINE 4 MG/ML 1ML VIAL/SYRINGE IV PRN ×4 (04:49→18:39)
[2022-01-19] MEDS: SODIUM CHLORIDE 0.9% INJ 10 ML SYR IV SCH ×2 (04:50→18:29)
[2022-01-20] MEDS: MORPHINE 4 MG/ML 1ML VIAL/SYRINGE IV PRN ×3 (01:14→21:37)
[2022-01-20] MEDS: LORazepam 2 MG/ML VIAL IV PRN ×3 (01:14→21:38)
[2022-01-20] MEDS: SODIUM CHLORIDE 0.9% INJ 10 ML SYR IV PRN ×2 (01:14→17:33)
[2022-01-20] MEDS: SODIUM CHLORIDE 0.9% INJ 10 ML SYR IV SCH ×2 (06:53→17:33)
[2022-01-21] MEDS: LORazepam 2 MG/ML VIAL IV PRN ×6 (00:55→23:12)
[2022-01-21] MEDS: MORPHINE 4 MG/ML 1ML VIAL/SYRINGE IV PRN ×6 (00:57→23:11)
[2022-01-21] MEDS ORDERED: LORazepam 2 MG/ML VIAL As Ordered ONE ×2 (05:24→22:30)
[2022-01-21] MEDS: SODIUM CHLORIDE 0.9% INJ 10 ML SYR IV SCH ×2 (05:41→17:40)
[2022-01-21] MEDS: SODIUM CHLORIDE 0.9% INJ 10 ML SYR IV PRN ×3 (11:17→18:46)
[2022-01-22] MEDS ORDERED: LORazepam 2 MG/ML VIAL As Ordered ONE ×2 (02:41→21:50)
[2022-01-22] MEDS: LORazepam 2 MG/ML VIAL IV PRN ×2 (02:54→21:55)
[2022-01-22] MEDS: MORPHINE 4 MG/ML 1ML VIAL/SYRINGE IV PRN ×3 (02:55→21:56)
[2022-01-22] MEDS: SODIUM CHLORIDE 0.9% INJ 10 ML SYR IV SCH ×2 (05:33→18:23)
[2022-01-23] MEDS ORDERED: LORazepam 2 MG/ML VIAL As Ordered ONE (00:42)
[2022-01-23] MEDS: MORPHINE 4 MG/ML 1ML VIAL/SYRINGE IV PRN ×4 (00:47→18:37)
[2022-01-23] MEDS: LORazepam 2 MG/ML VIAL IV PRN ×4 (00:47→18:37)
[2022-01-23] MEDS: SODIUM CHLORIDE 0.9% INJ 10 ML SYR IV SCH ×2 (05:28→17:48)
[2022-01-24] MEDS: LORazepam 2 MG/ML VIAL IV PRN ×4 (00:09→18:52)
[2022-01-24] MEDS: SODIUM CHLORIDE 0.9% INJ 10 ML SYR IV PRN ×3 (00:10→18:52)
[2022-01-24] MEDS: MORPHINE 4 MG/ML 1ML VIAL/SYRINGE IV PRN ×5 (00:39→21:18)
[2022-01-24] MEDS: SODIUM CHLORIDE 0.9% INJ 10 ML SYR IV SCH ×2 (06:08→16:08)
[2022-01-25] MEDS: LORazepam 2 MG/ML VIAL IV PRN ×3 (02:30→21:31)
[2022-01-25] MEDS: SODIUM CHLORIDE 0.9% INJ 10 ML SYR IV SCH ×2 (06:05→17:23)
[2022-01-25] MEDS: SODIUM CHLORIDE 0.9% INJ 10 ML SYR IV PRN ×4 (08:50→21:30)
[2022-01-25] MEDS: MORPHINE 4 MG/ML 1ML VIAL/SYRINGE IV PRN ×4 (08:50→21:32)
[2022-01-26] MEDS: LORazepam 2 MG/ML VIAL IV PRN ×5 (05:26→22:34)
[2022-01-26] MEDS: SODIUM CHLORIDE 0.9% INJ 10 ML SYR IV SCH ×2 (05:26→18:48)
[2022-01-26] MEDS: MORPHINE 4 MG/ML 1ML VIAL/SYRINGE IV PRN ×5 (05:28→22:35)
[2022-01-26] MEDS ORDERED: LORazepam 2 MG/ML VIAL As Ordered ONE (18:45)
[2022-01-26] MEDS: SODIUM CHLORIDE 0.9% INJ 10 ML SYR IV PRN (22:33)
[2022-01-27] MEDS: SODIUM CHLORIDE 0.9% INJ 10 ML SYR IV PRN (01:40)
[2022-01-27] MEDS: MORPHINE 4 MG/ML 1ML VIAL/SYRINGE IV PRN ×3 (01:41→16:46)
[2022-01-27] MEDS: LORazepam 2 MG/ML VIAL IV PRN ×3 (01:41→16:46)
[2022-01-27] MEDS: SODIUM CHLORIDE 0.9% INJ 10 ML SYR IV SCH ×2 (06:00→16:45)
[2022-01-28] MEDS: LORazepam 2 MG/ML VIAL IV PRN ×2 (02:29→14:16)
[2022-01-28] MEDS: MORPHINE 4 MG/ML 1ML VIAL/SYRINGE IV PRN ×5 (02:29→22:05)
[2022-01-28] MEDS: SODIUM CHLORIDE 0.9% INJ 10 ML SYR IV PRN (02:30)
[2022-01-28] MEDS: SODIUM CHLORIDE 0.9% INJ 10 ML SYR IV SCH ×2 (06:00→17:25)
[2022-01-28] MEDS: SCOPOLAMINE 1MG TRANSDERMAL PATCH TOP PRN (22:18)
[2022-01-29] MEDS: MORPHINE 4 MG/ML 1ML VIAL/SYRINGE IV PRN ×4 (00:41→23:01)
[2022-01-29] MEDS: LORazepam 2 MG/ML VIAL IV PRN ×2 (00:41→18:36)
[2022-01-29] MEDS: SODIUM CHLORIDE 0.9% INJ 10 ML SYR IV SCH ×2 (06:06→18:35)
[2022-01-29] MEDS: SODIUM CHLORIDE 0.9% INJ 10 ML SYR IV PRN (23:08)
[2022-01-30] MEDS: LORazepam 2 MG/ML VIAL IV PRN ×3 (03:09→18:05)
[2022-01-30] MEDS: MORPHINE 4 MG/ML 1ML VIAL/SYRINGE IV PRN ×5 (03:09→22:41)
[2022-01-30] MEDS: SODIUM CHLORIDE 0.9% INJ 10 ML SYR IV SCH ×2 (06:25→18:04)
[2022-01-31] MEDS: SODIUM CHLORIDE 0.9% INJ 10 ML SYR IV SCH ×2 (06:28→15:28)
[2022-01-31] MEDS: LORazepam 2 MG/ML VIAL IV PRN ×2 (06:29→15:27)
[2022-01-31] MEDS: MORPHINE 4 MG/ML 1ML VIAL/SYRINGE IV PRN ×3 (09:40→18:46)
[2022-02-01] MEDS: SODIUM CHLORIDE 0.9% INJ 10 ML SYR IV SCH (06:01)
[2022-02-01] MEDS: MORPHINE 10MG/0.5ML ORAL CONCENTRATE SOLUTION U/D SL PRN ×3 (11:31→16:24)
[2022-02-01] MEDS: LORazepam 1 MG TAB PO PRN ×3 (11:31→16:24)
[2022-02-01] MEDS: SCOPOLAMINE 1MG TRANSDERMAL PATCH TOP PRN (16:43)
[2022-02-02] MEDS: MORPHINE 10MG/0.5ML ORAL CONCENTRATE SOLUTION U/D SL PRN ×4 (04:26→22:06)
[2022-02-02] MEDS: LORazepam 1 MG TAB PO PRN ×2 (11:50→22:06)
[2022-02-02] MEDS: SCOPOLAMINE 1MG TRANSDERMAL PATCH TOP PRN (11:51)
[2022-02-03] MEDS: MORPHINE 10MG/0.5ML ORAL CONCENTRATE SOLUTION U/D SL PRN ×2 (05:28→16:21)
[2022-02-03] MEDS: LORazepam 1 MG TAB PO PRN (16:20)
[2022-02-04] MEDS: MORPHINE 10MG/0.5ML ORAL CONCENTRATE SOLUTION U/D SL PRN ×4 (05:34→14:40)
[2022-02-04] MEDS: LORazepam 1 MG TAB PO PRN ×4 (05:34→14:39)
[2022-02-05] MEDS: LORazepam 1 MG TAB PO PRN ×3 (01:07→20:06)
[2022-02-05] MEDS: MORPHINE 10MG/0.5ML ORAL CONCENTRATE SOLUTION U/D SL PRN ×4 (01:08→20:06)
[2022-02-06] MEDS: LORazepam 1 MG TAB PO PRN (01:33)
[2022-02-06] MEDS: MORPHINE 10MG/0.5ML ORAL CONCENTRATE SOLUTION U/D SL PRN ×4 (01:33→18:45)
[2022-02-06] MEDS ORDERED: MORPHINE 10MG/0.5ML ORAL CONCENTRATE SOLUTION U/D SL PRN (08:25)
[2022-02-06] MEDS ORDERED: HYOSCYAMINE SULFATE 0.125 MG SUBL TABLET SL PRN (08:25)
[2022-02-06] MEDS: LEVALBUTEROL 1.25 MG/0.5 ML CONCENTRATE NEB INH PRN ×3 (10:00→20:29)
[2022-02-06] MEDS: SCOPOLAMINE 1MG TRANSDERMAL PATCH TOP PRN ×2 (10:35→19:35)
== END 2022-02-06 21:34 | disposition expired | DRG 871 ==
LOC: EDBD 05:34 → M ED 05:34 → M ED INP 08:57 → ENRESERV 10:35 → M PCU 11:16 → M ICU 01-05 01:30 → M MS5PR 01-11 20:09 → M PCU 01-14 12:28 → M MSPAV 01-17 00:34
PROVIDERS: ADMIT Internal Medicine; ATTEND Internal Medicine Nephrology
PROC: 30233N1 Transfusion of Nonautologous Red Blood Cells into Peripheral Vein, Percutaneous Approach (ICD-10-PCS; 2022-01-04)
PROC: 30233R1 Transfusion of Nonautologous Platelets into Peripheral Vein, Percutaneous Approach (ICD-10-PCS; 2022-01-04)
PROC: 30233K1 Transfusion of Nonautologous Frozen Plasma into Peripheral Vein, Percutaneous Approach (ICD-10-PCS; 2022-01-04)
PROC: B246ZZZ Ultrasonography of Right and Left Heart (ICD-10-PCS; 2022-01-05)
PROC: 0W3P8ZZ Control Bleeding in Gastrointestinal Tract, Via Natural or Artificial Opening Endoscopic (ICD-10-PCS; 2022-01-05)
PROC: 06HM33Z Insertion of Infusion Device into Right Femoral Vein, Percutaneous Approach (ICD-10-PCS; 2022-01-05)
PROC: 0BH17EZ Insertion of Endotracheal Airway into Trachea, Via Natural or Artificial Opening (ICD-10-PCS; 2022-01-05)
PROC: 5A1945Z Respiratory Ventilation, 24-96 Consecutive Hours (ICD-10-PCS; 2022-01-05)
PROC: 02HV33Z Insertion of Infusion Device into Superior Vena Cava, Percutaneous Approach (ICD-10-PCS; principal; 2022-01-11 15:00)
DX: A41.9 Sepsis, unspecified organism (principal); J69.0 Pneumonitis due to inhalation of food and vomit; R65.21 Severe sepsis with septic shock; I85.11 Secondary esophageal varices with bleeding; J96.01 Acute respiratory failure with hypoxia; K22.11 Ulcer of esophagus with bleeding; G93.41 Metabolic encephalopathy; E87.2 Acidosis; J90 Pleural effusion, not elsewhere classified; N17.9 Acute kidney failure, unspecified; E87.1 Hypo-osmolality and hyponatremia; K92.0 Hematemesis; K92.2 Gastrointestinal hemorrhage, unspecified; D62 Acute posthemorrhagic anemia; K70.31 Alcoholic cirrhosis of liver with ascites; F10.20 Alcohol dependence, uncomplicated; D72.829 Elevated white blood cell count, unspecified; E86.0 Dehydration; E87.6 Hypokalemia; G62.9 Polyneuropathy, unspecified; Z88.1 Allergy status to other antibiotic agents; Z88.8 Allergy status to other drugs, medicaments and biological substances; F17.210 Nicotine dependence, cigarettes, uncomplicated; F41.9 Anxiety disorder, unspecified; Z20.822 Contact with and (suspected) exposure to COVID-19; Z66 Do not resuscitate; I10 Essential (primary) hypertension; E83.39 Other disorders of phosphorus metabolism; K70.11 Alcoholic hepatitis with ascites; K70.40 Alcoholic hepatic failure without coma